=== PATIENT | female | born 1950 | race Caucasian/White ===

== ENCOUNTER → 2017-09-13 | Outpatient (CLI) | payer MEDICARE ==
--- NOTE | 2017-09-13 14:44 | RADIOLOGY REPORT (SQ) ---
EXAM DESCRIPTION: CT HEAD WITHOUT COMPLETED DATE/TIME: 09/13/2017 1:54 pm REASON FOR STUDY: HEADACHE (R51) R51 HEADACHE COMPARISON: None. TECHNIQUE: Axial images acquired through the brain without intravenous contrast. Images reviewed wi th bone, brain and subdural windows. Additional sagittal and coronal reconstructions were generated. Images stored on PACS. All CT scanners at this facility use dose modulation, iterative reconstruction, and/or weight based d osing when appropriate to reduce radiation dose to as low as reasonably achievable (ALARA). [facility]: Dose Right [facility]: CareDose [facility]: Dose Right [facility]: Teradose 4D [facility]: Angel Alerts RADIATION DOSE: CT Rad equipment meets quality standard of care and radiation dose reduction techniq ues were employed. CTDIvol: 48.6 mGy. DLP: 929 mGy-cm. mGy. LIMITATIONS: None. FINDINGS: VENTRICLES: Normal size and contour. CEREBRUM: No masses. No hemorrhage. No midline shift. No evidence for acute infarction. Normal gra y/white matter differentiation. No areas of low density in the white matter. CEREBELLUM: No masses. No hemorrhage. No alteration of density. No evidence for acute infarction. EXTRAAXIAL SPACES: No fluid collections. No masses. ORBITS AND GLOBE: No intra- or extraconal masses. Normal contour of globe without masses. CALVARIUM: No fracture. PARANASAL SINUSES: No fluid or mucosal thickening. SOFT TISSUES: No mass or hematoma. OTHER: No other significant finding. IMPRESSION: NORMAL BRAIN CT WITHOUT CONTRAST. EVIDENCE OF ACUTE STROKE: NO. COMMENT: Quality ID # [id number]: Final reports with documentation of one or more dose reduction techniques (e.g., Automated exposure control, adjustment of the mA and/or kV according to patient size, use of iterative reconstruction technique) TECHNICAL DOCUMENTATION: JOB ID: [id number] [employer]- All Rights Reserved Reading location - IP/workstation name: [email or web address]-[email or web address]
== END ==
LOC: RAD 13:32
PROVIDERS: ATTEND Family Medicine
DX: R51 Headache (principal)
CPT/HCPCS: 70450

== ENCOUNTER 2017-10-22 09:35 | Day surgery (SDC) | payer MEDICARE ==
[~2017-10-22 09:35] MED LIST: PROPOFOL INJ 200 MG/20 ML VIAL IV ONE
[2017-10-22 11:11] VITALS: BP 130/52
[2017-10-22] MEDS ORDERED: PROPOFOL INJ 200 MG/20 ML VIAL IV ONE (11:50)
--- NOTE | 2017-10-22 14:03 | Operative Report ---
Operative Report DATE OF SURGERY: 10/22/17 Operative Report: The risks, benefits and alternatives of the procedure including risks of bleeding, perforation requiring surgery are explained to the patient in detail and informed consent was obtained. Patient was taken back to the endoscopy suite and placed in a left, lateral decubital position. Timeout was called. Propofol medications administered. A rectal examination is done which did not reveal any masses, tenderness of fissures. An Olympus endoscope is inserted into the patient's rectum. The scope was then carefully advanced all the way to the cecum. The cecum was identified by the usual anatomical landmarks including the ileocecal valve as well as the appendiceal office. Photodocumentation is obtained. Prep is good. The scope was then sequentially pulled back via the various segments of the colon including the ascending colon , hepatic flexure, transverse colon, splenic flexure, descending colon and finally into the rectosigmoid portions of the colon. Retroflexion maneuver was performed. The risks benefits and alternatives of the procedure explained to the patient in detail and informed consent is obtained.A GIF Olympus video scope was inserted into the patient's mouth and hypopharynx, the esophagus is identified intubated and insufflated, the scope was then advanced through the esophagus stomach and duodenum, retroflexion maneuver is done, the esophagus stomach and first and second portions of the duodenum examined PREOPERATIVE DIAGNOSIS: Colorectal cancer screening. Nausea, gastroesophageal reflux disease POSTOPERATIVE DIAGNOSIS: Diverticulosis. Internal hemorrhoids. Colon polyp that is removed via snare polypectomy. Right-sided colon inflammation status post biopsy rule out lymphocytic colitis. Gastritis status post biopsy. Hiatal hernia OPERATION: Colonoscopy with snare polypectomy. Colonoscopy with biopsy. EGD with biopsy SURGEON: MOHSEN BARLOW ANESTHESIA: LMAC TISSUE REMOVED OR ALTERED: As noted above. COMPLICATIONS: None. ESTIMATED BLOOD LOSS: None. INTRAOPERATIVE FINDINGS: As noted above. PROCEDURE: Patient tolerated procedure well. No immediate postprocedure complications are noted. Patient discharged in good condition. Discharge date 10/22/2017. Discharge diet: Regular. Discharge activity: Regular. 2-3 week follow-up to discuss findings. 3-5 year surveillance colonoscopy. We will wait on the pathology. The patient is instructed to call the office or proceed to the emergency room should there be any further problems or questions.
== END 2017-10-22 11:14 | disposition home or self-care (01) ==
LOC: END 09:35
PROVIDERS: ATTEND Internal Medicine Gastroenterology
DX: Z12.11 Encounter for screening for malignant neoplasm of colon (principal); K57.30 Diverticulosis of large intestine without perforation or abscess without bleeding; K64.8 Other hemorrhoids; D12.6 Benign neoplasm of colon, unspecified; K52.9 Noninfective gastroenteritis and colitis, unspecified; K44.9 Diaphragmatic hernia without obstruction or gangrene; K29.50 Unspecified chronic gastritis without bleeding; E11.9 Type 2 diabetes mellitus without complications; E78.5 Hyperlipidemia, unspecified; I10 Essential (primary) hypertension; Z87.891 Personal history of nicotine dependence; E78.00 Pure hypercholesterolemia, unspecified; Z79.84 Long term (current) use of oral hypoglycemic drugs; Z79.899 Other long term (current) drug therapy; Z79.82 Long term (current) use of aspirin
CPT/HCPCS: 43239; 45380; 45388; 82962; 88342 ×2; 88305 ×2; J2704; 813

== ENCOUNTER → 2018-01-21 | Outpatient (CLI) | payer MEDICARE ==
--- NOTE | 2018-01-21 14:18 | WOMENS IMAGING REPORT ---
EXAM DESCRIPTION: BONE DENSITY HIP/SPINE COMPLETED DATE/TIME: 01/21/2018 1:48 pm REASON FOR STUDY: M81.0 AGE RELATED OSTEOPOROSIS Z12.31 ENCNTR SCREEN MAMMOGRAM FOR MALIGNANT NEOP LASM OF JOE M81.0 AGE-RELATED OSTEOPOROSIS W/O CURRENT PATHOLOGICAL FRAC COMPARISON: None. TECHNIQUE: Dual-Energy X-ray Absorptiometry (DEXA) of the AP Spine and Hip. LIMITATIONS: None. FINDINGS: LUMBAR SPINE: The bone mineral density (BMD) measured from L1-L4 in the AP projection correlates with a T-score of -1.2, which is osteopenia as defined by the World Health Organization. HIP: The bone mineral density (BMD) measured in the left hip correlates with a T-score of -2.7 in the femo ral neck, which is osteoporosis as defined by the World Health Organization. IMPRESSION: 1. LUMBAR SPINE: Osteopenia 2. HIP: Osteoporosis COMMENT: The World Health Organization defines low BMD as follows: T-score: Normal: Greater than -1.0 Osteopenia: Between -1.0 and -2.5 Osteoporosis: Less than -2.5 without fractures Established osteoporosis: Less than -2.5 with fractures In general, you may wish to consider: Diagnosis Treatment Follow-up DEXA Normal BMD Prevention 2-3 years Osteopenia Prevention/Therapy 1-2 years Osteoporosis Therapy Yearly TECHNICAL DOCUMENTATION: JOB ID: [id number] [employer]- All Rights Reserved Reading location - IP/workstation name: [email or web address]
--- NOTE | 2018-01-21 17:19 | WOMENS IMAGING REPORT ---
EXAM DESCRIPTION: 3D SCREENING MAMMO BILAT COMPLETED DATE/TIME: 01/21/2018 1:48 pm REASON FOR STUDY: ROUTINE SCREENING MAMMOGRAM Z12.31 Z12.31 ENCNTR SCREEN MAMMOGRAM FOR MALIGNANT N EOPLASM OF JEO M81.0 AGE-RELATED OSTEOPOROSIS W/O CURRENT PATHOLOGICAL FRAC COMPARISON: None. TECHNIQUE: Standard craniocaudal and mediolateral oblique views of each breast recorded using digita l acquisition and breast tomosynthesis. LIMITATIONS: None. FINDINGS: No masses, calcifications or architectural distortion. No areas of suspicion. Read with the assistance of CAD. .[facility] - R2 Cenova Version 1.3 .[facility] Imaging - R2 Cenova Version 1.3 .[facility] Imaging - R2 Cenova Version 2.4 .[facility] [place] - R2 Cenova Version 2.4 .[facility] - R2 Practice Administrator Version 9.2 IMPRESSION: NORMAL MAMMOGRAM. BIRADS 1. BREAST DENSITY: a. The breasts are almost entirely fatty. BIRAD: 1 NEGATIVE RECOMMENDATION: ROUTINE SCREENING Please continue yearly bilateral screening tomosynthesis in January 2019 COMMENT: The patient has been notified of the results by letter per [place] requirements. Additional no tification policies are in place for contacting patient with suspicious or incomplete findings. Quality ID #[id number]: The [employer] recommends an annual screening mammogram for women aged 40 years or over. This facility utilizes a reminder system to ensure that all patients receive reminder letters, and/or direct phone calls for appointments. This includes reminders for routine scr eening mammograms, diagnostic mammograms, or other Breast Imaging Interventions when appropriate. Th is patient will be placed in the appropriate reminder system. The [employer] (ACR) has developed recommendations for screening MRI of the breast s in certain patient populations, to be used in conjunction with mammography. Breast MRI surveillanc e may be appropriate for women with more than 20% lifetime risk of developing breast cancer as deter mined by genetic testing, significant family history of the disease, or history of mantle radiation f or Hodgkins Disease. ACR Practice Guidelines 2008. DBT Technology DBT is a type of tomographic mammography. With conventional mammography, overlapping breast tissue ma y make lesions difficult to detect, even with good compression. DBT uses an x-ray tube that rotates a round the breast, taking images at different angles. These images are then combined to create thin sl ices of the breast that the radiologist can view as a 3D reconstruction. The [facility] unit can perform full-field digital mammograms (2D imaging); or DBT (3D imaging); or both, in a combination mode that quickly performs both the mammogram and the tomosynthesis scan while the breast is still compressed. PQRS 6045F: Fluoroscopic imaging is not utilized for breast tomosynthesis. TECHNICAL DOCUMENTATION: FINDING NUMBER: (1) ASSESSMENT: (1) JOB ID: [id number] [employer]- All Rights Reserved Reading location - IP/workstation name: [email or web address]-[email or web address]
== END ==
LOC: WI 13:47
PROVIDERS: ATTEND Physician Assistant
DX: Z12.31 Encounter for screening mammogram for malignant neoplasm of breast (principal); M81.0 Age-related osteoporosis without current pathological fracture
CPT/HCPCS: 77063; 77067; 77080

== ENCOUNTER → 2018-07-15 | Outpatient (CLI) | payer MEDICARE ==
--- NOTE | 2018-07-15 12:46 | RADIOLOGY REPORT (SQ) ---
EXAM DESCRIPTION: SHOULDER LEFT 2 OR MORE VIEWS COMPLETED DATE/TIME: 07/15/2018 11:05 am REASON FOR STUDY: PAIN IN LEFT SHOULDER M25.512 PAIN IN LEFT SHOULDER COMPARISON: None. NUMBER OF VIEWS: Three views. TECHNIQUE: Internal rotation, external rotation, and Y view images acquired of the left shoulder. LIMITATIONS: None. FINDINGS: MINERALIZATION: Normal. BONES: No acute fracture or dislocation. No worrisome bone lesions. JOINTS: Mild acromioclavicular arthrosis. No dislocation. VISUALIZED LUNGS AND RIBS: No pneumothorax. No rib fracture. SOFT TISSUES: No radiopaque foreign body. OTHER: No other significant finding. IMPRESSION: 1. No acute osseous findings. 2. Mild acromioclavicular arthrosis. TECHNICAL DOCUMENTATION: JOB ID: [id number] [employer]- All Rights Reserved Reading location - IP/workstation name: [email or web address]
== END ==
LOC: OD 10:31
PROVIDERS: ATTEND Physician Assistant
DX: M25.512 Pain in left shoulder (principal); M19.012 Primary osteoarthritis, left shoulder

== ENCOUNTER → 2018-07-29 | Outpatient (CLI) | payer MEDICARE ==
[2018-07-29 12:17] LABS: ABSOLUTE LYMPHOCYTES (AUTO) 1.7 10^3/uL (0.5-4.7); ABSOLUTE MONOCYTES (AUTO) 0.6 10^3/uL (0.1-1.4); ABSOLUTE NEUT (AUTO) 4.5 10^3/uL (1.7-8.2); BASOPHILS % (AUTO) 0.5 % (0-2); EOSINOPHILS % (AUTO) 0.6 % (0-6); HEMATOCRIT 41.8 % (36.0-47.0); HEMOGLOBIN 14.3 g/dL (12.0-15.5); LYMPHOCYTES % (AUTO) 24.8 % (13-45); MEAN CORPUSCULAR HEMOGLOBIN 29.5 pg (27.0-33.4); MEAN CORPUSCULAR HGB CONC 34.3 g/dL (32.0-36.0); MEAN CORPUSCULAR VOLUME 86 fl (80-97); MONOCYTES % (AUTO) 9.1 % (3-13); PLATELET COUNT 233 10^3/uL (150-450); RED BLOOD COUNT 4.86 10^6/uL (3.72-5.28); RED CELL DISTRIBUTION WIDTH 13.4 % (11.5-14.0); TOTAL CELLS COUNTED % (AUTO) 100 %; WHITE BLOOD COUNT 6.9 10^3/uL (4.0-10.5)
[2018-07-29 12:39] LABS: ALANINE AMINOTRANSFERASE 31 U/L (9-52); ALBUMIN 4.6 g/dL (3.5-5.0); ALKALINE PHOSPHATASE 92 U/L (38-126); ANION GAP 11 (5-19); ASPARTATE AMINO TRANSFERASE 31 U/L (14-36); BILIRUBIN,DIRECT 0.2 mg/dL (0.0-0.4); BILIRUBIN,TOTAL 0.5 mg/dL (0.2-1.3); BLOOD UREA NITROGEN 17 mg/dL (7-20); CALCIUM 9.5 mg/dL (8.4-10.2); CARBON DIOXIDE 27 mmol/L (22-30); CHLORIDE 102 mmol/L (98-107); GLUCOSE 115 mg/dL (75-110); POTASSIUM 4.8 mmol/L (3.6-5.0); SODIUM 139.5 mmol/L (137-145); TOTAL PROTEIN 7.6 g/dL (6.3-8.2)
--- NOTE | 2018-07-29 12:48 | RADIOLOGY REPORT (SQ) ---
EXAM DESCRIPTION: CHEST 2 VIEWS COMPLETED DATE/TIME: 07/29/2018 10:59 am REASON FOR STUDY: COUGH COMPARISON: 10/26/2009 EXAM PARAMETERS: NUMBER OF VIEWS: two views TECHNIQUE: Digital Frontal and Lateral radiographic views of the chest acquired. RADIATION DOSE: NA LIMITATIONS: none FINDINGS: LUNGS AND PLEURA: No opacities, masses or pneumothorax. No pleural effusion. MEDIASTINUM AND HILAR STRUCTURES: No masses or contour abnormalities. HEART AND VASCULAR STRUCTURES: Heart normal size. No evidence for failure. BONES: No acute findings. HARDWARE: None in the chest. OTHER: No other significant finding. IMPRESSION: NO ACUTE RADIOGRAPHIC FINDING IN THE CHEST. TECHNICAL DOCUMENTATION: JOB ID: [id number] [employer]- All Rights Reserved Reading location - IP/workstation name: [email or web address]
== END ==
LOC: RAD 10:37
PROVIDERS: ATTEND Physician Assistant
DX: R05 Cough (principal)
CPT/HCPCS: 36415; 71046; 80053; 85025

== ENCOUNTER 2018-10-08 01:59 | Emergency (ER) | payer MEDICARE ==
--- NOTE | 2018-10-08 03:54 | ER Document Report ---
ED Extremity Problem, Lower - General Chief Complaint: Leg Injury Stated Complaint: LEG SWELLING Time Seen by Provider: 10/08/18 03:32 Primary Care Provider: LUCHO HERNANDEZ PA [NO LOCAL MD] - Follow up as needed TRAVEL OUTSIDE OF THE [place] IN LAST 30 DAYS: No - HPI Notes: Patient is a 68-year-old female with a history of hypertension and high cholesterol who presents to the emergency department after a fall last . Patient states that she was standing on a three-foot concrete slab when she stepped off landing on both feet. Patient denies falling. Patient states that she has continued to have left knee pain that radiates up into her left groin. Patient reports that she has taken ibuprofen as needed for pain but has not been helping. Patient states that the pain can occur in any position, and at times feels like a jolt radiating from her left knee up into her left groin. She states that she has been able to ambulate but that it hurts. Patient complains of swelling to her left upper leg. Patient denies back pain. Patient denies blood thinners. Patient denies head or neck pain. Denies loss of bowel or bladder. - Related Data Allergies/Adverse Reactions: No Known Allergies Allergy (Verified 10/22/17 09:39) Past Medical History - General Information source: Patient - Social History Smoking Status: Never Smoker Cigarette use (# per day): No Smoking Education Provided: No Frequency of alcohol use: None Drug Abuse: None Lives with: Friend Family History: Reviewed & Not Pertinent - Medical History Medical History: Negative - Past Medical History Cardiac Medical History: Reports: Hx Coronary Artery Disease, Hx Hypertension Denies: Hx Heart Attack Pulmonary Medical History: Denies: Hx Asthma, Hx Bronchitis, Hx COPD, Hx Pneumonia Neurological Medical History: Denies: Hx Cerebrovascular Accident, Hx Seizures Endocrine Medical History: Reports: None Renal/ Medical History: Reports: None Malignancy Medical History: Reports: None GI Medical History: Reports: None Musculoskeletal Medical History: Reports Hx Arthritis - HANDS/BACK Skin Medical History: Reports None Psychiatric Medical History: Reports: None Traumatic Medical History: Reports: None Infectious Medical History: Reports: None - Immunizations Hx Diphtheria, Pertussis, Tetanus Vaccination: Yes Review of Systems - Review of Systems Constitutional: No symptoms reported EENT: No symptoms reported Cardiovascular: No symptoms reported Respiratory: No symptoms reported Gastrointestinal: No symptoms reported Genitourinary: No symptoms reported Female Genitourinary: No symptoms reported Musculoskeletal: See HPI Skin: No symptoms reported Hematologic/Lymphatic: No symptoms reported Neurological/Psychological: No symptoms reported Physical Exam - Vital signs Vitals: Temp Pulse Resp BP Pulse Ox 97.5 F 86 22 H 114/75 95 10/08/18 02:05 10/08/18 02:05 10/08/18 02:05 10/08/18 02:05 10/08/18 02:05 Interpretation: Normal - General General appearance: Appears well, Alert - Respiratory Respiratory status: No respiratory distress Chest status: Nontender Breath sounds: Normal Chest palpation: Normal - Cardiovascular Rhythm: Regular Heart sounds: Normal auscultation, S1 appreciated, S2 appreciated - Abdominal Inspection: Normal Distension: No distension Bowel sounds: Normal Tenderness: Nontender Organomegaly: No organomegaly - Extremities General lower extremity: Other - Slight edema to left knee in comparision to right. No erythema. No ecchymosis. Patient able to perform active ROM to knee joint with minimal pain that radiates into the left thigh and left groin. Hematoma noted to left lateral upper leg in various stages of healing (pt. repo rts this is old and not from fall). Negative straight leg raise. No ecchymosis, edema or discoloration to the left groin or left inner thigh. - Skin Skin Temperature: Warm Skin Moisture: Dry Skin Color: Normal Course - Re-evaluation Re-evalutation: 10/08/18 03:59 After patient evaluation I will obtain imaging due to continue discomfort after the fall. I will medicate with Tylenol for pain. Patient did states she took ibuprofen about 4 hours ago. 10/08/18 04:55 Upon reevaluation patient is resting comfortably on stretcher. Patient states that the Tylenol did help with her discomfort. With further questioning patient states that her left knee pain that radiates into her left groin did not start initially after the fall. Patient states that the pain started yesterday. Patient denies any other injury or fall. Patient states that she is constantly up on her feet and moving around. Patient has not rested her lower extremity, states she has not used ice. Educated patient to rest her left leg over the next few days, elevate as tolerated to take Tylenol as needed for pain. Informed patient that she can continue her ibuprofen but she should avoid taking multiple doses of NSAID's as this can upset her stomach. - Vital Signs Vital signs: Temp Pulse Resp BP Pulse Ox 97.5 F 82 20 116/77 98 10/08/18 05:15 10/08/18 05:15 10/08/18 05:15 10/08/18 05:15 10/08/18 05:15 - Diagnostic Test Radiology reviewed: Reports reviewed Discharge - Discharge Clinical Impression: Leg pain, left Strain of knee and leg, left Qualifiers: Encounter type: initial encounter Qualified Code(s): S86.912A - Strain of unspecified muscle(s) and tendon(s) at lower leg level, left leg, initial encounter Condition: Stable Disposition: HOME, SELF-CARE Additional Instructions: Today you were seen in the emergency department for leg pain after a fall on . We did obtain x-rays of your left knee and left hip. The x-ray show ed no acute fracture or dislocation. Please rest your left leg over the next few days and elevate to help with the swelling. Continue to take Tylenol as needed for pain. You may take ibuprofen, but please take caution as this is an NSAID and can upset your stomach. Follow up with Dr. Champagne's office if you continue to have discomfort. Please seek immediate medical attention if you have any swelling in her calf, redness to your leg, discoloration of your leg, inability to ambulate, or any other worsening signs or symptoms. Leg Pain, Nonspecific We did not find an obvious cause for your leg pain. There's no sign of blood clot, infection, or other serious disease. Possible causes of vague leg pain include muscle or joint inflammation, disc disease in the lower back, pressure on the nerves in the back, or reduced blood flow through the arteries of the leg. Rest the leg. Pain can be eased with an antiinflammatory pain medicine such as ibuprofen. If the pain involves a small area, a heating pad might help. Call the doctor or return if the leg becomes swollen, weak, discolored, or increasingly painful, or if you develop any other significant change in your health. Referrals: LUCHO HERNANDEZ PA [NO LOCAL MD] - Follow up as needed
[2018-10-08] MEDS ORDERED: ACETAMINOPHEN 325 MG TABLET PO ONE (03:55)
--- NOTE | 2018-10-08 04:35 | RADIOLOGY REPORT (SQ) ---
EXAM DESCRIPTION: XR HIP 2 OR MORE VIEWS COMPLETED DATE/TME: 10/08/2018 03:50 CLINICAL HISTORY: 68 years, Female, fall COMPARISON: None. NUMBER OF VIEWS: Two TECHNIQUE: Two views of the left hip LIMITATIONS: None. FINDINGS: There is no acute fracture or dislocation. The hip and sacroiliac joint appear intact. No large soft tissue swelling. IMPRESSION: No acute fracture or dislocation. copyright 2010 [employer]- All Rights Reserved
--- NOTE | 2018-10-08 04:36 | RADIOLOGY REPORT (SQ) ---
CLINICAL HISTORY: fall COMPARISON: None. TECHNIQUE: XR KNEE 4 OR MORE VIEWS 10/08/2018 3:50 AM CDT FINDINGS: There is no fracture. Joint spaces are preserved. Soft tissues are unremarkable. IMPRESSION: No acute osseous findings.
[2018-10-08 05:17] VITALS: BP 116/77
== END 2018-10-08 05:16 | disposition home or self-care (01) ==
LOC: ER 01:59
DX: S86.912A Strain of unspecified muscle(s) and tendon(s) at lower leg level, left leg, initial encounter (principal); M79.605 Pain in left leg; W17.89XA Other fall from one level to another, initial encounter; I25.10 Atherosclerotic heart disease of native coronary artery without angina pectoris; I10 Essential (primary) hypertension
CPT/HCPCS: 99283; 73502; 73564; A9270

== ENCOUNTER → 2018-10-23 | Outpatient (CLI) | payer MEDICARE ==
--- NOTE | 2018-10-23 10:37 | RADIOLOGY REPORT (SQ) ---
EXAM DESCRIPTION: L SPINE WHOLE COMPLETED DATE/TIME: 10/23/2018 9:42 am REASON FOR STUDY: LUMBAGO WITH SCIATICA, LEFT SIDE (M54.42) M54.42 LUMBAGO WITH SCIATICA, LEFT SIDE COMPARISON: None. NUMBER OF VIEWS: Five views including obliques. TECHNIQUE: AP, lateral, oblique, and sacral radiographic images acquired of the lumbar spine. LIMITATIONS: None. FINDINGS: MINERALIZATION: Normal. SEGMENTATION: Normal. No transitional anatomy. ALIGNMENT: Normal. VERTEBRAE: There is very slight anterior wedging of L3. No more than 5% loss of height. This may re present normal variant. Mild compression deformity cannot be excluded. Age is indeterminate. DISCS: Mild disc space narrowing at L1-L2, L2-L3 and L3-L4. Mild disc space narrowing at L5-S1. POSTERIOR ELEMENTS: Pedicles and facets are intact. No pars defect or posterior arch defects. HARDWARE: None in the spine. PARASPINAL SOFT TISSUES: Normal. PELVIS: Intact as visualized. No fractures or worrisome bone lesions. SI joints intact. OTHER: No other significant finding. IMPRESSION: Mild multilevel spondylosis. Mild wedge deformity at L3. Age is indeterminate. TECHNICAL DOCUMENTATION: JOB ID: [id number] [employer]- All Rights Reserved Reading location - IP/workstation name: [email or web address]
== END ==
LOC: RAD 09:13
PROVIDERS: ATTEND Physician Assistant
DX: M54.42 Lumbago with sciatica, left side (principal)
CPT/HCPCS: 72110

== ENCOUNTER → 2018-11-07 | Outpatient (CLI) | payer MEDICARE ==
--- NOTE | 2018-11-07 12:05 | RADIOLOGY REPORT (SQ) ---
EXAM DESCRIPTION: MRI LT LOWER JOINT WITHOUT COMPLETED DATE/TIME: 11/07/2018 11:24 am REASON FOR STUDY: PAIN IN LEFT HIP (M25.552) M25.552 PAIN IN LEFT HIP COMPARISON: None. TECHNIQUE: Lefth[employer] images acquired and stored on PACS. Multiplanar images to include fat sensitive s equences as T1, fluid sensitive sequences as T2/STIR and gradient echo sequences. Large FOV fat and f luid sensitive sequences include pelvis and opposite hip. LIMITATIONS: None. FINDINGS: BONE CORTEX AND MARROW: No generalized marrow replacement. No occult fracture. No worriso me bone lesions. TARGETED HIP: FEMORAL HEAD: No evidence of AVN. No evidence of impingement. Mild osteoarthritic changes. ACETABULUM: No acetabular dysplasia. No subchondral cysts. LABRUM: Degenerative changes. TROCHANTER: No trochanteric bursal effusion. No edema/fluid at the insertions of the gluteus medius and gluteus minimus. OPPOSITE HIP: Limited evaluation. No worrisome bone lesions. No significant effusion. PELVIS, LOWER LUMBAR SPINE, SACROILIAC JOINTS: PELVIS : Mild subchondral edema right inferior SI joint. L SPINE: Spondylosis. MUSCLES AND SOFT TISSUES: Adductors and piriformis normal. Abductors and greater trochanteric bursa n ormal without edema or fluid. Iliopsoas bursa without fluid. Hamstring attachments without edema or t ear. PELVIC SOFT TISSUES: No masses or adenopathy. SCIATIC NERVE: Identified, without masses or abnormal signal. OTHER: No other significant finding. IMPRESSION: Mild degenerative changes. No acute findings in the left hip. TECHNICAL DOCUMENTATION: JOB ID: [id number] [employer]- All Rights Reserved Reading location - IP/workstation name: [email or web address]
== END ==
LOC: RAD 10:39
PROVIDERS: ATTEND Physician Assistant
DX: M25.552 Pain in left hip (principal)

== ENCOUNTER → 2018-12-18 | Outpatient (CLI) | payer MEDICARE ==
--- NOTE | 2018-12-18 14:00 | RADIOLOGY REPORT (SQ) ---
EXAM DESCRIPTION: MRI LUMBAR SPINE WITHOUT COMPLETED DATE/TIME: 12/18/2018 1:45 pm REASON FOR STUDY: S32.030A WEDGE COMPRESSION FRACTURE OF THIRD LUMBAR VERTEBRA, INIT S32.030A WEDGE COMPRESSION FRACTURE OF THIRD LUMBAR VERTEBRA COMPARISON: Lumbar spine plain films 10/23/2018 TECHNIQUE: Sagittal and Axial imaging includes T1, T2, STIR and gradient echo sequences. Coronal T2/ HASTE imaging. LIMITATIONS: None. FINDINGS: VISUALIZED UPPER ABDOMEN: Limited evaluation. No acute or suspicious findings suggested. SEGMENTATION: No transitional anatomy. The lowest well-developed disc space is labeled L5-S1. ALIGNMENT: Minimal anterolisthesis of L5 over S1 VERTEBRAE: Intact. No lumbar osteoporotic compression deformity. BONE MARROW: Normal. No marrow replacement or reactive changes. DISC SIGNAL: Diffuse decreased T2 weighted intervertebral disc signal. POSTERIOR ELEMENTS: Generally intact. No pars defect evident. HARDWARE: None in the spine. CORD AND CONUS: Normal in size and signal intensity. Conus at the L1-2 level. SOFT TISSUES: No aortic aneurysm seen. No bulky retroperitoneal adenopathy or mass. No paraspinal mas s or fluid. T10-11: At the upper edge of the field of view. Borderline central canal narrowing and mild bilater al foraminal stenosis results from broad diffuse disc bulge and bulky bilateral facet hypertrophy. T11-12: No central or foraminal stenosis. Mild bilateral facet hypertrophy. T12-L1: No central or foraminal stenosis. Mild bilateral facet hypertrophy. L1-L2: No central or foraminal stenosis. Mild bilateral facet hypertrophy. L2-L3: Broad diffuse posterior disc bulge, moderate bilateral facet and ligament hypertrophy cause pasquale rderline central canal narrowing. No significant foraminal narrowing. L3-L4: Broad diffuse posterior disc bulge bony spurring left greater than right moderate bilateral fa cet hypertrophy. Borderline central canal narrowing. Mild right, moderate left foraminal narrowing without definite exiting L3 nerve root impingement. L4-L5: Broad diffuse posterior disc bulging and moderate bilateral facet and ligament hypertrophy cau ses mild central canal stenosis. This best shown on axial T2 image 23 there is moderate bilateral fo raminal narrowing without exit L4 nerve root. L5-S1: Bulky bilateral facet arthropathy is present. No central stenosis. Mild to moderate bilatera l foraminal narrowing right greater than left. SACRUM: Visualized upper sacrum intact. OTHER: No other significant findings. IMPRESSION: Mild diffuse degenerative disc and facet changes. No lumbar compression deformity. TECHNICAL DOCUMENTATION: JOB ID: [id number] [employer]- All Rights Reserved Reading location - IP/workstation name: [email or web address]
== END ==
LOC: RAD 12:53
PROVIDERS: ATTEND Pain Medicine Interventional Pain Medicine
DX: S32.030A Wedge compression fracture of third lumbar vertebra, initial encounter for closed fracture (principal); M51.36 Other intervertebral disc degeneration, lumbar region; X58.XXXA Exposure to other specified factors, initial encounter
CPT/HCPCS: 72148

== ENCOUNTER → 2019-03-11 | Outpatient (CLI) | payer MEDICARE ==
--- NOTE | 2019-03-11 15:38 | RADIOLOGY REPORT (SQ) ---
EXAM DESCRIPTION: CERV SP 4 OR 5 VIEWS COMPLETED DATE/TIME: 03/11/2019 1:11 pm REASON FOR STUDY: M79.602 PAIN IN LEFT ARM M79.602 PAIN IN LEFT ARM COMPARISON: None. NUMBER OF VIEWS: Five views including obliques. TECHNIQUE: AP, lateral, obliques and odontoid radiographic images acquired of the cervical spine. LIMITATIONS: None. FINDINGS: MINERALIZATION: Normal. ALIGNMENT: Normal. VERTEBRAE: Maintained height. No fracture or worrisome bone lesion. DISCS: Multilevel disc space narrowing with osteophytes. POSTERIOR ELEMENTS: Pedicles and facets are intact. No posterior arch defects. Facet arthropathy is present. FORAMINA: No significant foraminal stenosis. HARDWARE: None in the spine. PARASPINAL SOFT TISSUES: Normal. OTHER: No other significant finding. IMPRESSION: SPONDYLOSIS WITHOUT BONE LESION OR FRACTURE. TECHNICAL DOCUMENTATION: JOB ID: [id number] [employer]- All Rights Reserved Reading location - IP/workstation name: [email or web address]
== END ==
LOC: RAD 12:43
PROVIDERS: ATTEND Physician Assistant
DX: M79.602 Pain in left arm (principal); M47.9 Spondylosis, unspecified
CPT/HCPCS: 72050

== ENCOUNTER 2019-03-22 10:49 | Observation (INO) | payer MEDICARE ==
--- NOTE | 2019-03-22 11:40 | ER Document Report ---
ED Medical Screen (RME) - General Chief Complaint: High Blood Pressure Stated Complaint: BLOOD PRESSURE ISSUES Time Seen by Provider: 03/22/19 11:31 Primary Care Provider: CECE HUTCHINSON MD [Primary Care Provider] - Follow up as needed Mode of Arrival: Medic Information source: Patient Notes: 68-year-old female presents to ED for elevated blood pressure. She states she was at the [employer] and her head was buzzing and hurt so she checked her blood pressure and it was 211/117. She states the [employer] called EMS and they still got the blood pressure over 200. She was brought to the emergency room for her high blood pressure. States is been running high for long time because she is been having headaches and throwing up she just had not checked it. Discussed with the patient the need to follow-up with her doctor frequently when she has a history of high blood pressure and is having symptoms. She states she to the doctor and Sunday, and he doubled her medicine and added a water pill recently she was told to come to the emergency room if it got elevated over the weekend. States they are scheduling MRIs for her carotids next week and she has an appointment with the doctor on Sunday. TRAVEL OUTSIDE OF THE [place] IN LAST 30 DAYS: No - Related Data Allergies/Adverse Reactions: No Known Allergies Allergy (Verified 10/22/17 09:39) Past Medical History - Past Medical History Cardiac Medical History: Reports: Hx Coronary Artery Disease, Hx Hypertension Denies: Hx Heart Attack Pulmonary Medical History: Denies: Hx Asthma, Hx Bronchitis, Hx COPD, Hx Pneumonia Neurological Medical History: Denies: Hx Cerebrovascular Accident, Hx Seizures Renal/ Medical History: Denies: Hx Peritoneal Dialysis Musculoskeltal Medical History: Reports Hx Arthritis - HANDS/BACK Past Surgical History: Reports: Hx Hysterectomy - Immunizations Hx Diphtheria, Pertussis, Tetanus Vaccination: Yes Doctor's Discharge - Discharge Referrals: CECE HUTCHINSON MD [Primary Care Provider] - Follow up as needed
[2019-03-22 11:55] LABS: ABSOLUTE LYMPHOCYTES (AUTO) 0.8 10^3/uL (0.5-4.7); ABSOLUTE MONOCYTES (AUTO) 0.1 10^3/uL (0.1-1.4); ABSOLUTE NEUT (AUTO) 10.2 10^3/uL (1.7-8.2); HEMOGLOBIN 13.6 g/dL (12.0-15.5); LYMPHOCYTES % (AUTO) 7.1 % (13-45); MEAN CORPUSCULAR HEMOGLOBIN 28.1 pg (27.0-33.4); MEAN CORPUSCULAR HGB CONC 33.1 g/dL (32.0-36.0); MEAN CORPUSCULAR VOLUME 85 fl (80-97); PLATELET COUNT 319 10^3/uL (150-450); RED BLOOD COUNT 4.82 10^6/uL (3.72-5.28); RED CELL DISTRIBUTION WIDTH 14.5 % (11.5-14.0); SEGMENTED NEUTROPHILS % (AUTO) 91.9 % (42-78); TOTAL CELLS COUNTED % (AUTO) 100 %; WHITE BLOOD COUNT 11.1 10^3/uL (4.0-10.5)
[2019-03-22 11:58] LABS: INTERNATIONAL RATION (INR) 1.03; PROTHROMBIN TIME 13.5 SEC (11.4-15.4)
[2019-03-22 11:59] LABS: PARTIAL THROMBOPLASTIN TIME 27.6 SEC (23.5-35.8)
[2019-03-22 12:00] LABS: ALBUMIN 4.2 g/dL (3.5-5.0); ALKALINE PHOSPHATASE 85 U/L (38-126); ANION GAP 10 (5-19); ASPARTATE AMINO TRANSFERASE 22 U/L (14-36); BILIRUBIN,DIRECT 0.1 mg/dL (0.0-0.4); BILIRUBIN,TOTAL 0.5 mg/dL (0.2-1.3); BLOOD UREA NITROGEN 12 mg/dL (7-20); CALCIUM 9.9 mg/dL (8.4-10.2); CARBON DIOXIDE 23 mmol/L (22-30); CHLORIDE 106 mmol/L (98-107); CREATINE KINASE 79 U/L (30-135); GLUCOSE 130 mg/dL (75-110); POTASSIUM 4.2 mmol/L (3.6-5.0)
[2019-03-22 12:12] LABS: CREATINE KINASE MB 1.26 ng/mL (<4.55); NT PRO BNP 1610 pg/mL (5-900)
[2019-03-22 12:14] LABS: TROPONIN I < 0.012 ng/mL
--- NOTE | 2019-03-22 12:53 | ER Document Report ---
ED General - General Chief Complaint: High Blood Pressure Stated Complaint: BLOOD PRESSURE ISSUES Time Seen by Provider: 03/22/19 11:31 Primary Care Provider: CECE HUTCHINSON MD [Primary Care Provider] - Follow up as needed Mode of Arrival: Medic Notes: HPI: Vision is a 68-year-old female with past medical history as recorded including some recent uncontrolled blood pressure. Patient did see her primary care physician Dr. Champagne 2 days ago and had 1 of her pressure medications doubled. She does not remember which medication it was. She also got placed on a water pill yesterday by the same physician. Patient was driving to the [place] when she started to feel some mild pressure behind her head. No blurry vision. No weakness or numbness. No headache. Patient did call EMS. They did provide clonidine 0.2 mg after a recorded elevated blood pressure. Patient's blood pressure is now much improved here in the emergency department and she denies any headache. ROS: See HPI All other review of systems reviewed and otherwise negative Reviewed vital signs and nursing note as charted by RN. PHYSICAL EXAM: CONSTITUTIONAL: Alert and oriented and responds appropriately to questions. Well-appearing; well-nourished HEAD: Normocephalic; atraumatic EYES: PERRL; full extraocular range of motion ENT: Normal nose; no rhinorrhea; moist mucous membranes; pharynx without lesions noted NECK: Supple without meningismus; non-tender; no cervical lymphadenopathy, no masses CARD: Regular rate and rhythm; no murmurs; symmetric distal pulses RESP: Normal chest excursion without splinting or tachypnea; breath sounds clear and equal bilaterally; no wheezes, no rhonchi, no rales ABD/GI: Normal bowel sounds; non-distended; soft, non-tender; no palpable organomegaly or masses BACK: The back appears normal and is non-tender to palpation EXT: Normal ROM in all joints; non-tender to palpation; no edema SKIN: No acute lesions noted NEURO: CN 2-12 intact; 5/5 bilateral upper and lower extremity strength with sensation intact to light touch PSYCH: The patient's mood and manner are appropriate. Grooming and personal hygiene are appropriate. TRAVEL OUTSIDE OF THE [place] IN LAST 30 DAYS: No - Related Data Allergies/Adverse Reactions: No Known Allergies Allergy (Verified 10/22/17 09:39) Past Medical History - General Information source: Patient - Social History Smoking Status: Unknown if Ever Smoked Family History: Reviewed & Not Pertinent Patient has suicidal ideation: No Patient has homicidal ideation: No - Past Medical History Cardiac Medical History: Reports: Hx Coronary Artery Disease, Hx Hypertension Denies: Hx Heart Attack Pulmonary Medical History: Denies: Hx Asthma, Hx Bronchitis, Hx COPD, Hx Pneumonia Neurological Medical History: Denies: Hx Cerebrovascular Accident, Hx Seizures Renal/ Medical History: Denies: Hx Peritoneal Dialysis Musculoskeletal Medical History: Reports Hx Arthritis - HANDS/BACK Past Surgical History: Reports: Hx Hysterectomy - Immunizations Hx Diphtheria, Pertussis, Tetanus Vaccination: Yes Physical Exam - Vital signs Vitals: Temp Resp BP Pulse Ox 98.2 F 18 180/106 H 97 03/22/19 11:00 03/22/19 11:00 03/22/19 11:00 03/22/19 11:00 Course - Re-evaluation Re-evalutation: 03/22/19 12:47 Given the history and physical exam with the blood pressure now as recorded, with the patient denying any pain, I do believe subarachnoid hemorrhage and temporal arteritis to be extremely unlikely. Patient had no blurry vision and currently has no pain leading me to believe acute angle-closure glaucoma to be unlikely. EKG shows heart of 89, normal sinus rhythm, left bundle branch block, old EKG has been requested 03/22/19 13:45 Imaging and labs as recorded. Patient's headache is still improved. Blood pressure still stable. I called and spoke to the primary care physician Dr. Champagne and we will admit the patient for observation overnight with blood pressure monitoring. - Vital Signs Vital signs: Temp Pulse Resp BP Pulse Ox 98.2 F 16 151/119 H 97 03/22/19 11:00 03/22/19 12:31 03/22/19 12:31 03/22/19 12:31 - Laboratory Result Diagrams: 03/22/19 11:30 03/22/19 11:30 Laboratory results interpreted by me: 03/22/19 03/22/19 03/22/19 11:30 11:30 11:30 WBC 11.1 H RDW 14.5 H Lymph % (Auto) 7.1 L [place] % (Auto) 1.0 L Absolute Neuts (auto) 10.2 H Seg Neutrophils % 91.9 H Glucose 130 H NT-Pro-B Natriuret Pep 1610 H TSH 03/22/19 11:30 WBC RDW Lymph % (Auto) [place] % (Auto) Absolute Neuts (auto) Seg Neutrophils % Glucose NT-Pro-B Natriuret Pep TSH 0.36 L Discharge - Discharge Clinical Impression: Hypertensive urgency, Elevated brain natriuretic peptide (BNP) level Headache Qualifiers: Headache type: unspecified Headache chronicity pattern: unspecified pattern Intractability: not intractable Qualified Code(s): R51 - Headache Condition: Good Disposition: ADMITTED OBSERVATION Admitting Provider: [facility] Unit Admitted: Telemetry Referrals: CECE HUTCHINSON MD [Primary Care Provider] - Follow up as needed
--- NOTE | 2019-03-22 13:25 | RADIOLOGY REPORT (SQ) ---
EXAM DESCRIPTION: CT HEAD WITHOUT COMPLETED DATE/TIME: 03/22/2019 1:14 pm REASON FOR STUDY: 4; headache COMPARISON: 09/13/2017. TECHNIQUE: Axial images acquired through the brain without intravenous contrast. Images reviewed wi th bone, brain and subdural windows. Additional sagittal and coronal reconstructions were generated. Images stored on PACS. All CT scanners at this facility use dose modulation, iterative reconstruction, and/or weight based d osing when appropriate to reduce radiation dose to as low as reasonably achievable (ALARA). [facility]: Dose Right [facility]: CareDose [facility]: Dose Right [facility]: Teradose 4D [facility]: Smart Solar [employer] RADIATION DOSE: CT Rad equipment meets quality standard of care and radiation dose reduction techniq ues were employed. CTDIvol: 53.2 mGy. DLP: 964 mGy-cm. mGy. LIMITATIONS: None. FINDINGS: VENTRICLES: Normal size and contour. CEREBRUM: No masses. No hemorrhage. No midline shift. No evidence for acute infarction. Normal gra y/white matter differentiation. No areas of low density in the white matter. CEREBELLUM: No masses. No hemorrhage. No alteration of density. No evidence for acute infarction. EXTRAAXIAL SPACES: No fluid collections. No masses. ORBITS AND GLOBE: No intra- or extraconal masses. Normal contour of globe without masses. CALVARIUM: No fracture. PARANASAL SINUSES: No fluid or mucosal thickening. SOFT TISSUES: No mass or hematoma. OTHER: No other significant finding. IMPRESSION: NORMAL BRAIN CT WITHOUT CONTRAST. EVIDENCE OF ACUTE STROKE: NO. COMMENT: Quality ID # [id number]: Final reports with documentation of one or more dose reduction techniques (e.g., Automated exposure control, adjustment of the mA and/or kV according to patient size, use of iterative reconstruction technique) TECHNICAL DOCUMENTATION: JOB ID: [id number] [employer]- All Rights Reserved Reading location - IP/workstation name: [email or web address]
[2019-03-22] MEDS ORDERED: ACETAMINOPHEN 325 MG TABLET PO PRN (15:01)
[2019-03-22] MEDS ORDERED: LORAZEPAM INJ 2 MG/1 ML VIAL IV ONE (16:12)
[2019-03-22 16:38] LABS: CREATINE KINASE MB 0.99 ng/mL (<4.55)
[2019-03-22 16:40] LABS: TROPONIN I < 0.012 ng/mL
[2019-03-22] MEDS ORDERED: CYCLOBENZAPRINE HCL 10 MG TABLET PO PRN (16:43)
[2019-03-22] MEDS ORDERED: DEXTROSE 50%-WATER 25 GM/50 ML DISP.SYRIN IV PRN ×2 (16:44)
[2019-03-22] MEDS ORDERED: GLUCAGON,HUMAN RECOMB 1 MG INJ IM PRN (16:44)
[2019-03-22] MEDS ORDERED: DEXTROSE 40% GEL 15 GM TUBE PO PRN ×2 (16:44)
--- NOTE | 2019-03-22 17:02 | PDOC H&P ---
History of Present Illness Admission Date/PCP: 03/22/19 15:01 CECE HUTCHINSON MD Patient complains of: Elevated blood pressures and headache History of Present Illness: ADRI SHAH is a 68 year old female This is a 68-year-old female with a history of the hypertension hyperlipidemia coronary artery disease came to the office last week with blood pressure issues increase the beta-akbar still blood pressure is elevated him yesterday added the hydrochlorothiazide. Patient went to the [facility] today and patient's noticed the headaches not feeling well check of blood pressure was 211 systolic called EMS. Patient is receiving the 0.2 mg clonidine when patients came to the emergency department for systolic blood pressure was 140 and patient's denied any headache no other symptoms Patient's initial CT head was all negatives Patient have a history of coronary artery disease and I believe left bundle branch block and the previously seen in the [facility] had a stress test and echocardiogram done in the May 2018 per patient and all stable Patient is currently denied any chest pain no short of breath Past Medical History Cardiac Medical History: Reports: Coronary Artery Disease, Hypertension Denies: Myocardial Infarction Pulmonary Medical History: Denies: Asthma, Bronchitis, Chronic Obstructive Pulmonary Disease (COPD), Pneumonia Neurological Medical History: Denies: Seizures Endocrine Medical History: Reports: Diabetes Mellitus Type 2 Musculoskeltal Medical History: Reports: Arthritis - HANDS/BACK Psychiatric Medical History: Reports: General Anxiety Disorder Hematology: Denies: Anemia Past Surgical History Past Surgical History: Reports: Hysterectomy Social History Information Source: Patient Smoking Status: Unknown if Ever Smoked Electronic Cigarette use?: No Frequency of Alcohol Use: None Hx Recreational Drug Use: No Hx Prescription Drug Abuse: No Family History Family History: Reviewed & Not Pertinent Parental Family History Reviewed: Yes Children Family History Reviewed: Yes Sibling(s) Family History Reviewed.: Yes Medication/Allergy Home Medications: Aspirin [Ecotrin 81 mg EC Tablet] 324 mg PO DAILY 03/22/19 Atorvastatin Calcium [Lipitor 40 mg Tablet] 40 mg PO DAILY 03/22/19 Cyclobenzaprine HCl [Flexeril 10 mg Tablet] 10 mg PO HSP PRN 03/22/19 Hydrochlorothiazide [Hydrodiuril 25 mg Tablet] 25 mg PO DAILY 03/22/19 Lisinopril [Prinivil 40 mg Tablet] 40 mg PO DAILY 03/22/19 Metformin HCl [Metformin HCl ER] 500 mg PO DAILY 03/22/19 Metoprolol Succinate [Toprol Xl 25 mg Tab.sr] 25 mg PO DAILY 03/22/19 Multivit-Min/Iron/Folic/Tfe204 [Hair, Skin and Nails Caplet] 1 tab PO DAILY 03/22/19 Omeprazole 40 mg PO DAILY 03/22/19 Allergies/Adverse Reactions: No Known Allergies Allergy (Verified 10/22/17 09:39) Review of Systems Constitutional: ABSENT: chills, fever(s), headache(s), weight gain, weight loss Eyes: ABSENT: visual disturbances Ears: ABSENT: hearing changes Nose, Mouth, and Throat: PRESENT: headache(s) Cardiovascular: ABSENT: chest pain, dyspnea on exertion, edema, orthropnea, palpitations Respiratory: ABSENT: cough, hemoptysis Gastrointestinal: ABSENT: abdominal pain, constipation, diarrhea, hematemesis, hematochezia, nausea, vomiting Genitourinary: ABSENT: dysuria, hematuria Musculoskeletal: ABSENT: joint swelling Integumentary: ABSENT: rash, wounds Neurological: ABSENT: abnormal gait, abnormal speech, confusion, dizziness, focal weakness, syncope Psychiatric: ABSENT: anxiety, depression, homidical ideation, suicidal ideation Endocrine: ABSENT: cold intolerance, heat intolerance, menstrual abnormalities, polydipsia, polyuria Hematologic/Lymphatic: ABSENT: easy bleeding, easy bruising, lymphadenopathy Physical Exam Vital Signs: Temp Pulse Resp BP Pulse Ox 98.6 F 22 H 117/77 94 03/22/19 14:31 03/22/19 15:31 03/22/19 15:31 03/22/19 15:31 Intake & Output 03/21/19 03/22/19 03/23/19 06:59 06:59 06:59 Weight 73.482 kg General appearance: PRESENT: no acute distress, well-developed, well-nourished Head exam: PRESENT: atraumatic, normocephalic Eye exam: PRESENT: conjunctiva pink, EOMI, PERRLA. ABSENT: scleral icterus Ear exam: PRESENT: normal external ear exam Mouth exam: PRESENT: moist, tongue midline Neck exam: PRESENT: full ROM. ABSENT: carotid bruit, JVD, lymphadenopathy, thyromegaly Respiratory exam: PRESENT: clear to auscultation maude Cardiovascular exam: PRESENT: RRR. ABSENT: diastolic murmur, rubs, systolic murmur Pulses: PRESENT: normal dorsalis pedis pul, +2 pedal pulses bilateral Vascular exam: PRESENT: normal capillary refill GI/Abdominal exam: PRESENT: normal bowel sounds, soft. ABSENT: distended, gua rding, mass, organolmegaly, rebound, tenderness Rectal exam: PRESENT: deferred Neurological exam: PRESENT: alert, awake, oriented to person, oriented to place, oriented to time, oriented to situation, CN II-XII grossly intact. ABSENT: motor sensory deficit Psychiatric exam: PRESENT: appropriate affect, normal mood. ABSENT: homicidal ideation, suicidal ideation Skin exam: PRESENT: dry, intact, warm. ABSENT: cyanosis, rash Results Laboratory Results: 03/22/19 11:30 03/22/19 11:30 03/22/19 03/22/19 03/22/19 11:30 11:30 11:30 WBC 11.1 H RBC 4.82 Hgb 13.6 Hct 41.0 MCV 85 MCH 28.1 MCHC 33.1 RDW 14.5 H Plt Count 319 Seg Neutrophils % 91.9 H Sodium 138.6 Potassium 4.2 Chloride 106 Carbon Dioxide 23 Anion Gap 10 BUN 12 Creatinine 0.71 Est GFR ( Amer) > 60 Glucose 130 H Calcium 9.9 Magnesium 1.7 Total Bilirubin 0.5 AST 22 Alkaline Phosphatase 85 Total Protein 7.0 Albumin 4.2 TSH 0.36 L 03/22/19 03/22/19 03/22/19 11:30 11:30 15:45 Creatine Kinase 79 67 CK-MB (CK-2) 1.26 Troponin I < 0.012 NT-Pro-B Natriuret Pep 1610 H Impressions: Head CT 03/22/19 12:32 IMPRESSION: NORMAL BRAIN CT WITHOUT CONTRAST. EVIDENCE OF ACUTE STROKE: NO. Assessment & Plan - Diagnosis (1) Hypertensive urgency Is this a current diagnosis for this admission?: Yes Plan: Patient is currently taking the lisinopril 40 mg p.o. daily Also taking the metoprolol And added hydrochlorothiazide yesterday Patient to obviously responded very well with the clonidine Patient unable to take any Norvasc the mix of upset stomach Will consider continue the lisinopril beta-akbar Added a nighttime dose of clonidine Continues to monitor the next 24 to 48 hours in the hospital to control the blood pressures slowly bring it down Will get the MRI of the head We will also get the renal artery Doppler ultrasounds (2) Coronary artery disease Qualifiers: Coronary Disease-Associated Artery/Lesion type: [place] artery Associated angina: without angina Is this a current diagnosis for this admission?: Yes Plan: Patient have a left bundle branch block not sure was in [place] or previously Will get the serial cardiac enzyme Consult cardiology (3) Hyperlipidemia Qualifiers: Hyperlipidemia type: unspecified Qualified Code(s): E78.5 - Hyperlipidemia, unspecified Is this a current diagnosis for this admission?: Yes (4) Elevated brain natriuretic peptide (BNP) level Is this a current diagnosis for this admission?: Yes Plan: Consult cardiology rule out underlying heart failure most likely uncontrolled hypertension so related (5) Headache Qualifiers: Headache type: unspecified Headache chronicity pattern: unspecified pattern Intractability: not intractable Qualified Code(s): R51 - Headache Is this a current diagnosis for this admission?: Yes Plan: We will get the MRI and MRA of the head (6) Diabetes type 2, controlled Qualifiers: Diabetes mellitus 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 terminal gauger insulin use: without shelter use Is this a current diagnosis for this admission?: Yes Plan: Continues to metformin and sliding scale - Time Time Spent: 50 to 70 Minutes Medications reviewed and adjusted accordingly: Yes Anticipated discharge: Home Within: Other - Inpatient Certification Based on my medical assessment, after consideration of the patient's comorbi dities, presenting symptoms, or acuity I expect that the services needed warrant INPATIENT care.: Yes I certify that my determination is in accordance with my understanding of Medicare's requirements for reasonable and necessary INPATIENT services [42 CFR 412.3e].: Yes Medical Necessity: Significant Comorbidiites Make Outpatient Treatment Too Risky, Need Close Monitoring Due to Risk of Patient Decompensation Post Hospital Care: D/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
--- NOTE | 2019-03-22 18:23 | RADIOLOGY REPORT (SQ) ---
EXAM DESCRIPTION: MRI HEAD WITHOUT COMPLETED DATE/TIME: 03/22/2019 6:13 pm REASON FOR STUDY: syncopal COMPARISON: CT dated 03/22/2019. TECHNIQUE: Multiplanar imaging includes non-contrasted T1, T2, FLAIR, and Diffusion with ADC map seq uences. Images stored on PACS. LIMITATIONS: None. FINDINGS: ANATOMY: No anomalies. Normal vascular flow voids. Pituitary fossa normal. CSF SPACES: Normal in size and contour. No hemorrhage. CEREBRUM: A few high-signal intensity lesions scattered throughout the white matter on FLAIR imaging with distribution suggesting chronic micro-vascular ischemic change. Sulci and gyri normal in size a nd contour. No evidence of hemorrhage, mass or extraaxial fluid collection. POSTERIOR FOSSA: No signal alteration. No hemorrhage. No edema, masses or mass effect. Internal emma tory canals, cerebello-pontine angles, mastoids normal. DIFFUSION: Negative for acute or sub-acute infarction. ORBITS: No masses. Globes normal. PARANASAL SINUSES: No fluid levels. Mucosa normal. OTHER: No other significant finding. IMPRESSION: MINIMAL MICROVASCULAR ISCHEMIC CHANGE. OTHERWISE NORMAL STUDY. EVIDENCE OF ACUTE STROKE: NO. TECHNICAL DOCUMENTATION: JOB ID: [id number] [employer]- All Rights Reserved Reading location - IP/workstation name: [email or web address]
--- NOTE | 2019-03-22 18:24 | RADIOLOGY REPORT (SQ) ---
EXAM DESCRIPTION: MRA HEAD WITHOUT COMPLETED DATE/TIME: 03/22/2019 6:13 pm REASON FOR STUDY: 4; headache COMPARISON: None. TECHNIQUE: Axial 3-D aayx-en-swtgna acquisition imaging performed through the brain in the area of t he [place]. Images reformatted using 3-D MIPS. LIMITATIONS: None. FINDINGS: SOURCE IMAGES: No unexpected findings on source images. No large masses. 3-D MIP: No aneurysm. No occlusions. No significant stenosis. OTHER: No other significant finding. IMPRESSION: NORMAL MRA OF THE [place]. TECHNICAL DOCUMENTATION: JOB ID: [id number] [email or web address]- All Rights Reserved Reading location - IP/workstation name: [email or web address]
[2019-03-22] MEDS: INSULIN LISPRO 100 UNIT/ML 3 ML VIAL SUBCUT SCH (22:03)
[2019-03-22] MEDS: FAMOTIDINE 20 MG TABLET PO SCH (22:04)
[2019-03-22 22:37] LABS: TROPONIN I < 0.012 ng/mL
--- NOTE | 2019-03-23 00:27 | EKG REPORT ---
SEVERITY:- ABNORMAL ECG - SINUS RHYTHM LEFT BUNDLE BRANCH BLOCK : Confirmed by: Elena Bearden 23-Mar-2019 00:26:08
[2019-03-23 04:22] LABS: CREATINE KINASE MB 1.09 ng/mL (<4.55); TROPONIN I < 0.012 ng/mL
[2019-03-23] MEDS: PANTOPRAZOLE SODIUM 40 MG TABLET.DR PO SCH (05:15)
[2019-03-23] MEDS ORDERED: CLONIDINE HCL 0.1 MG TABLET PO ONE (07:15)
[2019-03-23] MEDS: INSULIN LISPRO 100 UNIT/ML 3 ML VIAL SUBCUT SCH ×4 (08:36→21:59)
[2019-03-23] MEDS ORDERED: CLONIDINE HCL 0.1 MG TABLET PO PRN (09:08)
[2019-03-23] MEDS: MULTIVITAMIN TABLET PO SCH (09:10)
[2019-03-23] MEDS: ATORVASTATIN CALCIUM 40 MG TABLET PO SCH (09:10)
[2019-03-23] MEDS: FAMOTIDINE 20 MG TABLET PO SCH ×2 (09:10→21:36)
[2019-03-23] MEDS: ENOXAPARIN SODIUM INJ 40 MG/0.4 ML DISP.SYRIN SUBCUT SCH (09:10)
[2019-03-23] MEDS: ASPIRIN 81 MG TABLET, ENT COATED PO SCH (09:10)
[2019-03-23] MEDS: METOPROLOL SUCCINATE 25 MG TAB.SR.24H PO SCH (09:10)
[2019-03-23] MEDS: METFORMIN HCL 500 MG TABLET PO SCH (09:10)
--- NOTE | 2019-03-23 09:12 | PDOC PROGRESS REPORT ---
Subjective Progress Note for:: 03/23/19 Subjective:: Patient is currently doing well Patient MRI and MRA was negative for any acute findings Patient was however this episode of a headache and blood pressures every morning for a long time even more than a several years Patient is received a clonidine dose this morning and looks like the patient's symptoms pretty much resolved According to the patient she had a headache with some nausea feeling Patient otherwise throughout the day blood pressure was all stable No chest pain no short of breath I believe patients probably underlying sleep apnea Patient snoring a lot at night according to the patient's Patient is probably outpatient sleep study to further evaluate Reason For Visit: UNCONTROL HTN,SYNCOPL Physical Exam Vital Signs: Temp Pulse Resp BP Pulse Ox 97.5 F 62 18 146/79 H 98 03/23/19 08:14 03/23/19 08:14 03/23/19 08:14 03/23/19 08:14 03/23/19 08:14 Intake & Output 03/22/19 03/23/19 03/24/19 06:59 06:59 06:59 Intake Total 300 Balance 300 Weight 81.8 kg General appearance: PRESENT: no acute distress, well-developed, well-nourished Head exam: PRESENT: atraumatic, normocephalic Eye exam: PRESENT: conjunctiva pink, EOMI, PERRLA. ABSENT: scleral icterus Ear exam: PRESENT: normal external ear exam Mouth exam: PRESENT: moist, tongue midline Neck exam: PRESENT: full ROM. ABSENT: carotid bruit, JVD, lymphadenopathy, thyromegaly Respiratory exam: PRESENT: clear to auscultation maude Cardiovascular exam: PRESENT: RRR. ABSENT: diastolic murmur, rubs, systolic murmur Pulses: PRESENT: normal dorsalis pedis pul, +2 pedal pulses bilateral Vascular exam: PRESENT: normal capillary refill GI/Abdominal exam: PRESENT: normal bowel sounds, soft. ABSENT: distended, guarding, mass, organolmegaly, rebound, tenderness Rectal exam: PRESENT: deferred Musculoskeletal exam: PRESENT: ambulatory Neurological exam: PRESENT: alert, awake, oriented to person, oriented to place, oriented to time, oriented to situation, CN II-XII grossly intact. ABSENT: motor sensory deficit Psychiatric exam: PRESENT: appropriate affect, normal mood. ABSENT: homicidal ideation, suicidal ideation Skin exam: PRESENT: dry, intact, warm. ABSENT: cyanosis, rash Results Laboratory Results: 03/22/19 11:30 03/22/19 11:30 03/22/19 03/22/19 03/22/19 11:30 11:30 11:30 WBC 11.1 H RBC 4.82 Hgb 13.6 Hct 41.0 MCV 85 MCH 28.1 MCHC 33.1 RDW 14.5 H Plt Count 319 Seg Neutrophils % 91.9 H Sodium 138.6 Potassium 4.2 Chloride 106 Carbon Dioxide 23 Anion Gap 10 BUN 12 Creatinine 0.71 Est GFR ( Amer) > 60 Glucose 130 H Calcium 9.9 Magnesium 1.7 Total Bilirubin 0.5 AST 22 Alkaline Phosphatase 85 Total Protein 7.0 Albumin 4.2 TSH 0.36 L 03/22/19 03/22/19 03/22/19 11:30 11:30 15:45 Creatine Kinase 79 67 CK-MB (CK-2) 1.26 Troponin I < 0.012 NT-Pro-B Natriuret Pep 1610 H 03/22/19 03/22/19 03/22/19 15:45 21:30 21:30 Creatine Kinase 59 CK-MB (CK-2) 0.99 1.00 Troponin I < 0.012 < 0.012 NT-Pro-B Natriuret Pep 03/23/19 03/23/19 03:19 03:19 Creatine Kinase 57 CK-MB (CK-2) 1.09 Troponin I < 0.012 NT-Pro-B Natriuret Pep Impressions: Head MRI 03/22/19 00:00 IMPRESSION: MINIMAL MICROVASCULAR ISCHEMIC CHANGE. OTHERWISE NORMAL STUDY. EVIDENCE OF ACUTE STROKE: NO. Head CT 03/22/19 12:32 IMPRESSION: NORMAL BRAIN CT WITHOUT CONTRAST. EVIDENCE OF ACUTE STROKE: NO. Brain MRI with MRA 03/22/19 16:01 IMPRESSION: NORMAL MRA OF THE [place] OF [place]. Assessment & Plan - Diagnosis (1) Hypertensive urgency Is this a current diagnosis for this admission?: Yes Plan: Currently all resolved We will get the renal artery ultrasound to rule out any renal artery stenosis But I believe patient's underlying mostly sleep apnea with the morning episode of the blood pressure was elevated with the symptoms Patient is probably need a sleep apnea study Patient otherwise other work-up is all negative's Will wait for the cardiology input (2) Coronary artery disease Qualifiers: Coronary Disease-Associated Artery/Lesion type: tetlin artery Associated angina: without angina Is this a current diagnosis for this admission?: Yes Plan: Patient have a left bundle branch block not sure was in New or previously Will get the serial cardiac enzyme Consult cardiology (3) Hyperlipidemia Qualifiers: Hyperlipidemia type: unspecified Qualified Code(s): E78.5 - Hyperlipidemia, unspecified Is this a current diagnosis for this admission?: Yes (4) Elevated brain natriuretic peptide (BNP) level Is this a current diagnosis for this admission?: Yes Plan: Consult cardiology rule out underlying heart failure most likely uncontrolled hypertension so related (5) Headache Qualifiers: Headache type: unspecified Headache chronicity pattern: unspecified pattern Intractability: not intractable Qualified Code(s): R51 - Headache Is this a current diagnosis for this admission?: Yes Plan: Patient MRI and MRA is negative We will refer outpatients neurology for further evaluations (6) Diabetes type 2, controlled Qualifiers: Diabetes mellitus detention insulin use: without car racer use Is this a current diagnosis for this admission?: Yes Plan: Continues to metformin and sliding scale - Time Time Spent with patient: 25-34 minutes Medications reviewed and adjusted accordingly: Yes Anticipated discharge: Home Within: within 24 hours - Plan Summary Plan Summary: Continues to current medications
[2019-03-23] MEDS ORDERED: LISINOPRIL 10 MG TABLET PO SCH (10:00)
[2019-03-23] MEDS ORDERED: CLONIDINE HCL 0.1 MG TABLET PO SCH (10:00)
--- NOTE | 2019-03-23 15:59 | RADIOLOGY REPORT (SQ) ---
EXAM DESCRIPTION: U/S LTD DUPLEX ART/DOLLY FLOW COMPLETED DATE/TIME: 03/23/2019 3:41 pm REASON FOR STUDY: US renal artery "uncontrolled HTN" COMPARISON: None. TECHNIQUE: Realtime and static grayscale images acquired. Selected color Doppler, velocities and spe ctral images recorded. LIMITATIONS: None. FINDINGS: RIGHT KIDNEY: RENAL ARTERY VELOCITIES: 49 cm/sec. Segmental artery velocity 46 cm/sec. RENAL VEIN: Color doppler flow present, patent. VELOCITY RATIO: 0.79. Normal waveforms. KIDNEY: 8.9 cm. No significant pathology. LEFT KIDNEY: RENAL ARTERY VELOCITIES: 45 cm/sec. Segmental artery velocity 47 cm/sec. RENAL VEIN: Color doppler flow present, patent. VELOCITY RATIO: 0.73. Normal waveforms. KIDNEY: 8.8 cm. No significant pathology. OTHER: No other significant finding. IMPRESSION: NO DOPPLER EVIDENCE OF HEMODYNAMICALLY SIGNIFICANT RENAL ARTERY STENOSIS. COMMENT: NORMAL RENAL ARTERY/AORTA VELOCITY RATIO IS LESS THAN OR EQUAL TO 3.5. TECHNICAL DOCUMENTATION: JOB ID: [id number] [employer]- All Rights Reserved Reading location - IP/workstation name: [email or web address]
--- NOTE | 2019-03-23 20:26 | PDOC CONSULTATION ---
Consultation-Blank Consultation: CARDIOLOGY CONSULTATION by Dr. Pilar Meier on 03/23/2019. Patient seen at 4:30 PM. 60 minutes spent on this patient more than 50% of time spent in direct patient care. REASON FOR CONSULTATION:: Episodic spikes in blood pressure, and with EKG showing left bundle branch block pattern. CONSULT REQUESTING PHYSICIAN: Dr. Keyon Champagne. HISTORY PRESENT ILLNESS: The patient is a 68-year-old female with known history of hypertension, hyperlipidemia and presumed chronic left bundle branch block pattern states that since the past few weeks has been having headaches in the morning and when she checks her blood pressure is very elevated. This is associated with nausea and subsequently the patient's blood pressure which is elevated comes down to within normal limits with medication when her headache and nausea also subsides. She denies any chest pain or discomfort. There is no palpitations. There is no flushing of the face. There is no PND orthopnea or shortness of breath. She seems to think that she has chronic left bundle branch block pattern. She denies history of coronary artery disease, although it is mentioned in the chart that the patient does have a history of CAD. She states she had a stress test in 2018 which is negative in [place]. There is no leg edema. There is no dizziness lightheadedness or or syncope. Past Medical History Cardiac Medical History: Reports:? Coronary Artery Disease[Patient denies history of coronary artery disease], Hypertension. She has a history of hyperlipidemia. Denies: Myocardial Infarction Pulmonary Medical History: Denies: Asthma, Bronchitis, Chronic Obstructive Pulmonary Disease (COPD), Pneumonia Neurological Medical History: Denies: Seizures. No history of migraines. No history of TIA or CVA. Endocrine Medical History: Reports: Diabetes Mellitus Type 2. No history of thyroid disease. Musculoskeltal Medical History: Reports: Arthritis - HANDS/BACK Psychiatric Medical History: Reports: General Anxiety Disorder Hematology: Denies: Anemia 1 GENITOURINARY: Denies chronic kidney disease no history of frequent or recurrent UTIs. ADVANCED all caps directives: The patient is a DNR. Her sister is a surrogate healthcare decision maker. Past Surgical History Past Surgical History: Reports: Hysterectomy Social History Information Source: Patient Smoking Status: Unknown if Ever Smoked Electronic Cigarette use?: No Frequency of Alcohol Use: None Hx Recreational Drug Use: No Hx Prescription Drug Abuse: No Family History Family History: There is no history of coronary artery disease or hypertension or diabetes mellitus in the family. She states her grandmother had cancer of breast. Medication/Allergy Home Medications: Aspirin [Ecotrin 81 mg EC Tablet] 324 mg PO DAILY 03/22/19 Atorvastatin Calcium [Lipitor 40 mg Tablet] 40 mg PO DAILY 03/22/19 Cyclobenzaprine HCl [Flexeril 10 mg Tablet] 10 mg PO HSP PRN 03/22/19 Hydrochlorothiazide [Hydrodiuril 25 mg Tablet] 25 mg PO DAILY 03/22/19 Lisinopril [Prinivil 40 mg Tablet] 40 mg PO DAILY 03/22/19 Metformin HCl [Metformin HCl ER] 500 mg PO DAILY 03/22/19 Metoprolol Succinate [Toprol Xl 25 mg Tab.sr] 25 mg PO DAILY 03/22/19 Multivit-Min/Iron/Folic/Eze990 [Hair, Skin and Nails Caplet] 1 tab PO DAILY 03/22/19 Omeprazole 40 mg PO DAILY 03/22/19 Allergies/Adverse Reactions: No Known Allergies Allergy (Verified 10/22/17 09:39) Review of Systems Constitutional: ABSENT: chills, fever(s), headache(s), weight gain, weight loss Eyes: ABSENT: visual disturbances Ears: ABSENT: hearing changes Nose, Mouth, and Throat: PRESENT: headache(s) Cardiovascular: ABSENT: chest pain, dyspnea on exertion, edema, orthropnea, palpitations Respiratory: ABSENT: cough, hemoptysis Gastrointestinal: ABSENT: abdominal pain, constipation, diarrhea, hematemesis, hematochezia, nausea, vomiting Genitourinary: ABSENT: dysuria, hematuria Musculoskeletal: ABSENT: joint swelling Integumentary: ABSENT: rash, wounds Neurological: ABSENT: abnormal gait, abnormal speech, confusion, dizziness, focal weakness, syncope Psychiatric: ABSENT: anxiety, depression, homidical ideation, suicidal ideation Endocrine: ABSENT: cold intolerance, heat intolerance, menstrual abnormalities, polydipsia, polyuria Hematologic/Lymphatic: ABSENT: easy bleeding, easy bruising, lymphadenopathy. Current Medications Generic Name Dose Route Start Last Admin Trade Name Freq PRN Reason Stop Dose Admin Acetaminophen 650 mg 03/22/19 15:01 Tylenol 325 Mg Tablet PO 04/21/19 15:00 Q4HP PRN FOR PAIN OR TEMP Aspirin 324 mg 03/23/19 10:00 03/23/19 09:10 Ecotrin 81 Mg Ec Tablet PO 04/22/19 09:59 324 mg DAILY ETHAN Administration Atorvastatin Calcium 40 mg 03/23/19 10:00 03/23/19 09:10 Lipitor 40 Mg Tablet PO 04/22/19 09:59 40 mg DAILY ETHAN Administration Clonidine 0.1 mg 03/23/19 09:08 Catapres 0.1 Mg Tablet PO 04/22/19 09:07 Q8HP PRN GIVE FOR SBP > 170 Cyclobenzaprine HCl 10 mg 03/22/19 16:43 Flexeril 10 Mg Tablet PO 04/21/19 16:42 HSP PRN FOR MUSCLE SPASMS Dextrose 12.5 gm 03/22/19 16:44 Dextrose Inj 50% Syringe (25 Gm/50 Ml) IV 04/21/19 16:43 PRN PRN FOR BG 50-69 IN ALERT PATIENT Protocol Dextrose 25 gm 03/22/19 16:44 Dextrose Inj 50% Syringe (25 Gm/50 Ml) IV 04/21/19 16:43 PRN PRN PER PROTOCOL Protocol Enoxaparin Sodium 40 mg 03/23/19 10:00 03/23/19 09:10 Lovenox Inj 40 Mg/0.4 Ml Disp.Syrin SUBCUT 04/22/19 09:59 40 mg DAILY ETHAN Administration Famotidine 20 mg 03/22/19 22:00 03/23/19 09:10 Pepcid 20 Mg Tablet PO 04/21/19 21:59 20 mg Q12 ETHAN Administration Glucagon 1 mg 03/22/19 16:44 Glucagen Inj 1 Mg Vial IM 04/21/19 16:43 PRN PRN Evaluate for BG < 70 Protocol Glucose 15 gm 03/22/19 16:44 Glutose 40% Gel 15 Gm Tube PO 04/21/19 16:43 PRN PRN FOR BG 50-69 IN ALERT PATIENT Protocol Glucose 30 gm 03/22/19 16:44 Glutose 40% Gel 15 Gm Tube PO 04/21/19 16:43 PRN PRN FOR BG < 50 IN ALERT PATIENT Protocol Insulin Human Lispro 0 - 12 unit 03/22/19 22:00 03/23/19 17:36 Humalog Insulin 100 Unit/1 Ml 3 Ml Vial SUBCUT 04/21/19 21:59 Not Given ACHS ETHAN Protocol Lisinopril 40 mg 03/23/19 10:00 03/23/19 09:10 Prinivil 10 Mg Tablet PO 04/22/19 09:59 40 mg DAILY ETHAN Administration Metformin HCl 500 mg 03/23/19 10:00 03/23/19 09:10 Glucophage 500 Mg Tablet PO 04/22/19 09:59 500 mg DAILY ETHAN Administration Metoprolol Succinate 25 mg 03/23/19 10:00 03/23/19 09:10 Toprol Xl 25 Mg Tab.Sr PO 04/22/19 09:59 25 mg DAILY ETHAN Administration Multivitamins 1 tab 03/23/19 10:00 03/23/19 09:10 Tab-A-Wayne (Multiple Vitamin) Tablet PO 04/22/19 09:59 1 tab DAILY ETHAN Administration Pantoprazole Sodium 40 mg 03/23/19 06:00 03/23/19 05:[address] Tablet PO 04/22/19 05:59 Not Given Q6AM ETHAN Discontinued Medications Generic Name Dose Route Start Last Admin Trade Name Jennifer PRN Reason Stop Dose Admin Clonidine 0.1 mg 03/23/19 10:00 Catapres 0.1 Mg Tablet PO 04/22/19 09:59 DAILY ETHAN Clonidine 0.1 mg 03/23/19 07:15 03/23/19 07:28 Catapres 0.1 Mg Tablet PO 03/23/19 07:16 0.1 mg NOW ONE Administration Lorazepam 1 mg 03/22/19 16:12 03/22/19 19:25 Ativan Inj 2 Mg/1 Ml Vial IV 03/22/19 16:13 Not Given NOW ONE 1PHYSICAL EXAMINATION: The patient is moderately obese. She is well-groomed in no acute distress. Selected Entries 03/23/19 15:26 Temperature 97.3 F Temperature Oral Source Pulse Rate 64 Respiratory 16 Rate Blood Pressure 149/74 H Blood Pressure 99 Mean BP Location Left Arm BP Position Supine O2 Sat by Pulse 98 Oximetry Oxygen Delivery Room Air Method HEAD: Atraumatic, normocephalic. EYES: Pupils equal round and reactive to light, extraocular movements intact, sclera anicteric, conjunctiva are normal. ENT: TMs normal, nares patent, oropharynx clear without exudates. Moist mucous membranes. NECK: Normal range of motion, supple without lymphadenopathy or JVD. Carotids are equal there is no bruits. There is no thyromegaly. There is no accessory muscles of respiration in use. Trachea central LUNGS: Breath sounds clear to auscultation bilaterally and equal. No wheezes rales or rhonchi. On palpation there is no chest wall tenderness. HEART: S1-S2 is heard. S1 is of normal intensity. There is no S3 gallop. There is no S4 gallop. There is systolic murmur left sternal border and apex without radiation. There is no rub.. ABDOMEN: Soft, nontender, normoactive bowel sounds. There is no hepatosplenic megaly no guarding, no rebound. No masses appreciated. EXTREMITIES: Normal range of motion, no pitting or edema. No clubbing or cyanosis. Femorals are well felt. There is no femoral bruits. Leg pulses are well felt. There is no DVT or cellulitis. There is no calf tenderness NEUROLOGICAL: Cranial nerves II through XII grossly intact. Normal speech, normal gait. The patient is awake alert oriented x3 with no focal deficits. PSYCH: Normal mood, normal affect. The patient judgment and insight are intact SKIN: Warm, Dry, normal turgor, no rashes or lesions noted. There is no petechia or ecchymosis. EKG: Sinus tachycardia with left bundle branch block pattern. Subsequent EKG EKG shows sinus rhythm with left bundle branch block rhythm. Labs- Entire Visit 03/22/19 03/22/19 03/22/19 11:30 11:30 11:30 WBC 11.1 H RBC 4.82 Hgb 13.6 Hct 41.0 MCV 85 MCH 28.1 MCHC 33.1 RDW 14.5 H Plt Count 319 Lymph % (Auto) 7.1 L Perkins % (Auto) 1.0 L Eos % (Auto) 0.0 Baso % (Auto) 0.0 Absolute Neuts (auto) 10.2 H Absolute Lymphs (auto) 0.8 Absolute Monos (auto) 0.1 Absolute Eos (auto) 0.0 Absolute Basos (auto) 0.0 Seg Neutrophils % 91.9 H PT 13.5 INR 1.03 APTT 27.6 Sodium 138.6 Potassium 4.2 Chloride 106 Carbon Dioxide 23 Anion Gap 10 BUN 12 Creatinine 0.71 Est GFR ( Amer) > 60 Est GFR (MDRD) Non-Af > 60 Glucose 130 H POC Glucose Calcium 9.9 Magnesium 1.7 Total Bilirubin 0.5 Direct Bilirubin 0.1 Neonat Total Bilirubin Not Reportable Neonat Direct Bilirubin Not Reportable Neonat Indirect Bili Not Reportable AST 22 ALT 18 Alkaline Phosphatase 85 Creatine Kinase 79 CK-MB (CK-2) Troponin I NT-Pro-B Natriuret Pep Total Protein 7.0 Albumin 4.2 TSH 03/22/19 03/22/19 03/22/19 11:30 11:30 15:45 WBC RBC Hgb Hct MCV MCH MCHC RDW Plt Count Lymph % (Auto) Perkins % (Auto) Eos % (Auto) Baso % (Auto) Absolute Neuts (auto) Absolute Lymphs (auto) Absolute Monos (auto) Absolute Eos (auto) Absolute Basos (auto) Seg Neutrophils % PT INR APTT Sodium Potassium Chloride Carbon Dioxide Anion Gap BUN Creatinine Est GFR ( Amer) Est GFR (MDRD) Non-Af Glucose POC Glucose Calcium Magnesium Total Bilirubin Direct Bilirubin Neonat Total Bilirubin Neonat Direct Bilirubin Neonat Indirect Bili AST ALT Alkaline Phosphatase Creatine Kinase 67 CK-MB (CK-2) 1.26 Troponin I < 0.012 NT-Pro-B Natriuret Pep 1610 H Total Protein Albumin TSH 0.36 L 03/22/19 03/22/19 03/22/19 15:45 21:30 21:30 WBC RBC Hgb Hct MCV MCH MCHC RDW Plt Count Lymph % (Auto) Perkins % (Auto) Eos % (Auto) Baso % (Auto) Absolute Neuts (auto) Absolute Lymphs (auto) Absolute Monos (auto) Absolute Eos (auto) Absolute Basos (auto) Seg Neutrophils % PT INR APTT Sodium Potassium Chloride Carbon Dioxide Anion Gap BUN Creatinine Est GFR ( Amer) Est GFR (MDRD) Non-Af Glucose POC Glucose Calcium Magnesium Total Bilirubin Direct Bilirubin Neonat Total Bilirubin Neonat Direct Bilirubin Neonat Indirect Bili AST ALT Alkaline Phosphatase Creatine Kinase 59 CK-MB (CK-2) 0.99 1.00 Troponin I < 0.012 < 0.012 NT-Pro-B Natriuret Pep Total Protein Albumin TSH 03/22/19 03/23/19 03/23/19 21:42 03:19 03:19 WBC RBC Hgb Hct MCV MCH MCHC RDW Plt Count Lymph % (Auto) Perkins % (Auto) Eos % (Auto) Baso % (Auto) Absolute Neuts (auto) Absolute Lymphs (auto) Absolute Monos (auto) Absolute Eos (auto) Absolute Basos (auto) Seg Neutrophils % PT INR APTT Sodium Potassium Chloride Carbon Dioxide Anion Gap BUN Creatinine Est GFR ( Amer) Est GFR (MDRD) Non-Af Glucose POC Glucose 118 H Calcium Magnesium Total Bilirubin Direct Bilirubin Neonat Total Bilirubin Neonat Direct Bilirubin Neonat Indirect Bili AST ALT Alkaline Phosphatase Creatine Kinase 57 CK-MB (CK-2) 1.09 Troponin I < 0.012 NT-Pro-B Natriuret Pep Total Protein Albumin TSH 03/23/19 03/23/19 03/23/19 08:14 11:11 16:54 WBC RBC Hgb Hct MCV MCH MCHC RDW Plt Count Lymph % (Auto) Perkins % (Auto) Eos % (Auto) Baso % (Auto) Absolute Neuts (auto) Absolute Lymphs (auto) Absolute Monos (auto) Absolute Eos (auto) Absolute Basos (auto) Seg Neutrophils % PT INR APTT Sodium Potassium Chloride Carbon Dioxide Anion Gap BUN Creatinine Est GFR ( Amer) Est GFR (MDRD) Non-Af Glucose POC Glucose 93 127 H 128 H Calcium Magnesium Total Bilirubin Direct Bilirubin Neonat Total Bilirubin Neonat Direct Bilirubin Neonat Indirect Bili AST ALT Alkaline Phosphatase Creatine Kinase CK-MB (CK-2) Troponin I NT-Pro-B Natriuret Pep Total Protein Albumin TSH Head MRI 03/22/19 00:00 IMPRESSION: MINIMAL MICROVASCULAR ISCHEMIC CHANGE. OTHERWISE NORMAL STUDY. EVIDENCE OF ACUTE STROKE: NO. Head CT 03/22/19 12:32 IMPRESSION: NORMAL BRAIN CT WITHOUT CONTRAST. EVIDENCE OF ACUTE STROKE: NO. Brain MRI with MRA 03/22/19 16:01 IMPRESSION: NORMAL MRA OF THE [place] OF [place]. Vascular Ultrasound 03/23/19 00:00 IMPRESSION: NO DOPPLER EVIDENCE OF HEMODYNAMICALLY SIGNIFICANT RENAL ARTERY STENOSIS. IMPRESSION/RECOMMENDATION 1. Hypertension with episodic elevation of blood pressure in the morning. Note the patient's renal artery Dopplers are negative for renal artery stenosis. Most likely the patient needs a late nightly dose of blood pressure medications. Would recommend changing the patient's lisinopril to 20 mg p.o. twice daily and increasing his as tolerated. Note there is no Doppler evidence of renal artery stenosis of significance. 2. Left bundle branch block pattern most likely chronic. The patient's troponins are negative. 3. Diabetes mellitus type 2 [id number]: Continue metformin 4. Hyperlipidemia: Continue statins. 5. Headache and nausea most likely related to elevated blood pressure. HABILITATION ASSISTANT work-up is negative. 6. Multiple CAD risk factors namely age, hypertension, hyperlipidemia, and diabetes mellitus. Later in view of the patient's left bundle branch block pattern will recommend outpatient IV Lexiscan Cardiolite stress test. Medications reviewed. Medications adjusted. Medication regimen and management plan discussed with attending physician on the case. Medical decision making is of moderate to high complexity. 60 minutes spent on this patient with more than 50% of time spent in direct patient care. Case discussed with Dr. Champagne. Will follow.
--- NOTE | 2019-03-24 02:18 | EKG REPORT ---
SEVERITY:- ABNORMAL ECG - SINUS RHYTHM LEFT BUNDLE BRANCH BLOCK : Confirmed by: Elena Bearden 24-Mar-2019 02:17:56
[2019-03-24] MEDS: PANTOPRAZOLE SODIUM 40 MG TABLET.DR PO SCH (05:03)
[2019-03-24] MEDS ORDERED: ONDANSETRON HCL INJ/PF 4 MG/2 ML SDV IV PRN (07:23)
[2019-03-24 07:43] VITALS: BP 145/76
[2019-03-24] MEDS: INSULIN LISPRO 100 UNIT/ML 3 ML VIAL SUBCUT SCH ×2 (08:24→12:05)
[2019-03-24] MEDS: METFORMIN HCL 500 MG TABLET PO SCH (09:23)
[2019-03-24] MEDS: METOPROLOL SUCCINATE 25 MG TAB.SR.24H PO SCH (09:23)
[2019-03-24] MEDS: ATORVASTATIN CALCIUM 40 MG TABLET PO SCH (09:24)
[2019-03-24] MEDS: ASPIRIN 81 MG TABLET, ENT COATED PO SCH (09:24)
[2019-03-24] MEDS: ENOXAPARIN SODIUM INJ 40 MG/0.4 ML DISP.SYRIN SUBCUT SCH (09:24)
[2019-03-24] MEDS: FAMOTIDINE 20 MG TABLET PO SCH (09:24)
[2019-03-24] MEDS: MULTIVITAMIN TABLET PO SCH (09:24)
[2019-03-24] MEDS ORDERED: LISINOPRIL 10 MG TABLET PO SCH (10:00)
--- NOTE | 2019-03-24 13:45 | PDOC DISCHARGE SUMMARY ---
Impression - Admit/DC Date/PCP Admission Date/Primary Care Provider: 03/22/19 14:09 CECE HUTCHINSON MD Discharge Date: 03/24/19 - Discharge Diagnosis (1) Hypertensive urgency Is this a current diagnosis for this admission?: Yes (2) Coronary artery disease Is this a current diagnosis for this admission?: Yes (3) Hyperlipidemia Is this a current diagnosis for this admission?: Yes (4) Elevated brain natriuretic peptide (BNP) level Is this a current diagnosis for this admission?: Yes (5) Headache Is this a current diagnosis for this admission?: Yes (6) Diabetes type 2, controlled Is this a current diagnosis for this admission?: Yes - Assessment Summary: This is a 68-year-old female is presenting the emergency department with the elevated blood pressures not feeling well According to the patient she has always in the morning feeling nausea and headache and a blood pressure is elevated for so many years In the emergency department patient's underwent for the CT of the head and all blood work was all stable Received a clonidine dose from EMS and works very well Patient admitting in the hospital for further evaluations Since further underwent for the MRI and MRA of the head which is negative for any acute finding Patient underwent for the renal artery ultrasound was negative for any stenosis An EKG cardiac enzyme is all stable and seen by the cardiology suggest follow outpatients stress test Patient had a stress test done in May last year was all normal In the hospitals patient's received the clonidine which also works same way much better At this point as per cardiology suggest divide the lisinopril twice a day morning and evening and clonidine 0.1 mg every 8 hours as needed Patient otherwise walking the hallway without any problems No neurological symptoms I think patients probably need a sleep study and further neurology evaluations will refer as outpatient with ongoing chronic problem for a long time Already seen by the cardiology clear will discharge as per discussed with the cardiology Follow in office 1 week Check of blood pressure at home daily Low-sodium diet - Additional Information Resuscitation Status: Do Not Resuscitate Discharge Diet: Cardiac Discharge Activity: Activity As Tolerated Referrals: MCKINLEY LANDEROS MD [NO LOCAL MD] - 04/01/19 10:00 am TERESA MARIE MD [ACTIVE STAFF] - 03/31/19 10:00 am () HERMINIO MOORE MD [ACTIVE STAFF] - 03/31/19 2:00 pm Prescriptions: Clonidine HCl [Catapres 0.1 mg Tablet] 0.1 mg PO Q8HP PRN #90 tablet PRN Reason: Lisinopril 20 mg PO BID #60 tablet Ondansetron HCl [Zofran 4 mg Tablet] 1 tab PO Q4H PRN #20 tablet PRN Reason: Home Medications: Aspirin [Ecotrin 81 mg EC Tablet] 324 mg PO DAILY 03/22/19 Atorvastatin Calcium [Lipitor 40 mg Tablet] 40 mg PO DAILY 03/22/19 Cyclobenzaprine HCl [Flexeril 10 mg Tablet] 10 mg PO HSP PRN 03/22/19 Hydrochlorothiazide [Hydrodiuril 25 mg Tablet] 25 mg PO DAILY 03/22/19 Lisinopril [Prinivil 40 mg Tablet] 40 mg PO DAILY 03/22/19 Metformin HCl [Metformin HCl ER] 500 mg PO DAILY 03/22/19 Metoprolol Succinate [Toprol Xl 25 mg Tab.sr] 25 mg PO DAILY 03/22/19 Multivit-Min/Iron/Folic/Obg284 [Hair, Skin and Nails Caplet] 1 tab PO DAILY 03/22/19 Omeprazole 40 mg PO DAILY 03/22/19 Clonidine HCl [Catapres 0.1 mg Tablet] 0.1 mg PO Q8HP PRN #90 tablet 03/24/19 Lisinopril 20 mg PO BID #60 tablet 03/24/19 Ondansetron HCl [Zofran 4 mg Tablet] 1 tab PO Q4H PRN #20 tablet 03/24/19 History of Present Illiness History of Present Illness: ADRI SHAH is a 68 year old female This is a 68-year-old female with a history of the hypertension hyperlipidemia coronary artery disease came to the office last week with blood pressure issues increase the beta-akbar still blood pressure is elevated him yesterday added the hydrochlorothiazide. Patient went to the [facility] today and patient's noticed the headaches not feeling well check of blood pressure was 211 systolic called EMS. Patient is receiving the 0.2 mg clonidine when patients came to the emergency department for systolic blood pressure was 140 and patient's denied any headache no other symptoms Patient's initial CT head was all negatives Patient have a history of coronary artery disease and I believe left bundle branch block and the previously seen in the [place] cardiology had a stress test and echocardiogram done in the May 2018 per patient and all stable Patient is currently denied any chest pain no short of breath Physical Exam Vital Signs: Temp Pulse Resp BP Pulse Ox 97.5 F 58 L 18 145/76 H 99 03/24/19 12:29 03/24/19 12:29 03/24/19 12:29 03/24/19 07:32 03/24/19 12:29 Intake & Output 03/23/19 03/24/19 03/25/19 06:59 06:59 06:59 Intake Total 300 1241 Balance 300 1241 Weight 81.8 kg 80.7 kg Results Laboratory Results: WBC 11.1 10^3/uL (4.0-10.5) H 03/22/19 11:30 RBC 4.82 10^6/uL (3.72-5.28) 03/22/19 11:30 Hgb 13.6 g/dL (12.0-15.5) 03/22/19 11:30 Hct 41.0 % (36.0-47.0) 03/22/19 11:30 MCV 85 fl (80-97) 03/22/19 11:30 MCH 28.1 pg (27.0-33.4) 03/22/19 11:30 MCHC 33.1 g/dL (32.0-36.0) 03/22/19 11:30 RDW 14.5 % (11.5-14.0) H 03/22/19 11:30 Plt Count 319 10^3/uL (150-450) 03/22/19 11:30 Lymph % (Auto) 7.1 % (13-45) L 03/22/19 11:30 Thomas % (Auto) 1.0 % (3-13) L 03/22/19 11:30 Eos % (Auto) 0.0 % (0-6) 03/22/19 11:30 Baso % (Auto) 0.0 % (0-2) 03/22/19 11:30 Absolute Neuts (auto) 10.2 10^3/uL (1.7-8.2) H 03/22/19 11:30 Absolute Lymphs (auto) 0.8 10^3/uL (0.5-4.7) 03/22/19 11:30 Absolute Monos (auto) 0.1 10^3/uL (0.1-1.4) 03/22/19 11:30 Absolute Eos (auto) 0.0 10^3/uL (0.0-0.6) 03/22/19 11:30 Absolute Basos (auto) 0.0 10^3/uL (0.0-0.2) 03/22/19 11:30 Seg Neutrophils % 91.9 % (42-78) H 03/22/19 11:30 PT 13.5 SEC (11.4-15.4) 03/22/19 11:30 INR 1.03 03/22/19 11:30 APTT 27.6 SEC (23.5-35.8) 03/22/19 11:30 Sodium 138.6 mmol/L (137-145) 03/22/19 11:30 Potassium 4.2 mmol/L (3.6-5.0) 03/22/19 11:30 Chloride 106 mmol/L (98-107) 03/22/19 11:30 Carbon Dioxide 23 mmol/L (22-30) 03/22/19 11:30 Anion Gap 10 (5-19) 03/22/19 11:30 BUN 12 mg/dL (7-20) 03/22/19 11:30 Creatinine 0.71 mg/dL (0.52-1.25) 03/22/19 11:30 Est GFR ( Amer) > 60 (>60) 03/22/19 11:30 Est GFR (MDRD) Non-Af > 60 (>60) 03/22/19 11:30 Glucose 130 mg/dL (75-110) H 03/22/19 11:30 POC Glucose 83 mg/dL (70-110) 03/24/19 11:35 Calcium 9.9 mg/dL (8.4-10.2) 03/22/19 11:30 Magnesium 1.7 mg/dL (1.6-2.3) 03/22/19 11:30 Total Bilirubin 0.5 mg/dL (0.2-1.3) 03/22/19 11:30 Direct Bilirubin 0.1 mg/dL (0.0-0.4) 03/22/19 11:30 Neonat Total Bilirubin Not Reportable 03/22/19 11:30 Neonat Direct Bilirubin Not Reportable 03/22/19 11:30 Neonat Indirect Bili Not Reportable 03/22/19 11:30 AST 22 U/L (14-36) 03/22/19 11:30 ALT 18 U/L (<35) 03/22/19 11:30 Alkaline Phosphatase 85 U/L (38-126) 03/22/19 11:30 Creatine Kinase 57 U/L (30-135) 03/23/19 03:19 CK-MB (CK-2) 1.09 ng/mL (<4.55) 03/23/19 03:19 Troponin I < 0.012 ng/mL 03/23/19 03:19 NT-Pro-B Natriuret Pep 1610 pg/mL (5-900) H 03/22/19 11:30 Total Protein 7.0 g/dL (6.3-8.2) 03/22/19 11:30 Albumin 4.2 g/dL (3.5-5.0) 03/22/19 11:30 TSH 0.36 uIU/mL (0.47-4.68) L 03/22/19 11:30 03/22/19 03/22/19 03/22/19 11:30 15:45 21:30 CK-MB (CK-2) 1.26 0.99 1.00 Troponin I < 0.012 < 0.012 < 0.012 NT-Pro-B Natriuret Pep 1610 H 03/23/19 03:19 CK-MB (CK-2) 1.09 Troponin I < 0.012 NT-Pro-B Natriuret Pep Impressions: Head MRI 03/22/19 00:00 IMPRESSION: MINIMAL MICROVASCULAR ISCHEMIC CHANGE. OTHERWISE NORMAL STUDY. EVIDENCE OF ACUTE STROKE: NO. Head CT 03/22/19 12:32 IMPRESSION: NORMAL BRAIN CT WITHOUT CONTRAST. EVIDENCE OF ACUTE STROKE: NO. Brain MRI with MRA 03/22/19 16:01 IMPRESSION: NORMAL MRA OF THE [place]. Vascular Ultrasound 03/23/19 00:00 IMPRESSION: NO DOPPLER EVIDENCE OF HEMODYNAMICALLY SIGNIFICANT RENAL ARTERY STENOSIS. Stroke Is this a Stroke Patient?: No Acute Heart Failure - Is this a Heart Failure Patient?: No
== END 2019-03-24 12:55 | disposition home or self-care (01) ==
LOC: ER 10:49 → EH 14:09 → INTOOBSV 15:01 → OBSVTOIN 15:01 → 3S 18:14
PROVIDERS: ADMIT Family Medicine; ATTEND Family Medicine
DX: I16.0 Hypertensive urgency (principal); R74.8 Abnormal levels of other serum enzymes; R51 Headache; E11.9 Type 2 diabetes mellitus without complications; Z66 Do not resuscitate; Z79.84 Long term (current) use of oral hypoglycemic drugs; Z79.82 Long term (current) use of aspirin; E78.5 Hyperlipidemia, unspecified; I25.10 Atherosclerotic heart disease of native coronary artery without angina pectoris; I44.7 Left bundle-branch block, unspecified; M19.042 Primary osteoarthritis, left hand; M19.041 Primary osteoarthritis, right hand; M46.90 Unspecified inflammatory spondylopathy, site unspecified; F41.1 Generalized anxiety disorder
CPT/HCPCS: 93005 ×2; 99285; 36415 ×2; 82553 ×2; 82962 ×3; 82550 ×2; 83735; 84443; 85025; 85610; 85730; 80053; 84484 ×2; 83880; 70551; 70544; 93976; 70450; 93010 ×2; G0378 ×2; A9270 ×16; J1650 ×2

== ENCOUNTER 2019-03-30 07:52 | Emergency (ER) | payer MEDICARE ==
[2019-03-30] MEDS ORDERED: ACETAMINOPHEN 325 MG TABLET PO ONE (09:22)
--- NOTE | 2019-03-30 09:24 | ER Document Report ---
ED Medical Screen (RME) - General Chief Complaint: High Blood Pressure Stated Complaint: BLOOD PRESSURE ISSUE Time Seen by Provider: 03/30/19 09:12 Primary Care Provider: HERMINIO MOORE MD [Primary Care Provider] - Follow up as needed Information source: Patient Notes: Patient presents complaining of elevated blood pressure around 3:00 this morning. Patient states her blood pressure was 182/110. Patient complains of feeling weak and tired. Blood pressure has since come back down. Patient does complain of frontal headache pain nausea and vomiting x1 episode. Patient states she has had chest pain for the past week. Patient states she did already take 4 baby aspirin this morning. hx: Hypertension, [place], degenerative disc disease I have greeted and performed a rapid initial assessment of this patient. A comprehensive ED assessment and evaluation of the patient, analysis of test results and completion of the medical decision making process will be conducted by additional ED providers. TRAVEL OUTSIDE OF THE [place] IN LAST 30 DAYS: No - Related Data Allergies/Adverse Reactions: No Known Allergies Allergy (Verified 03/30/19 07:59) Past Medical History - Past Medical History Cardiac Medical History: Reports: Hx Coronary Artery Disease, Hx Hypertension Denies: Hx Heart Attack Pulmonary Medical History: Denies: Hx Asthma, Hx Bronchitis, Hx COPD, Hx Pneumonia Neurological Medical History: Denies: Hx Cerebrovascular Accident, Hx Seizures Endocrine Medical History: Reports: Hx Diabetes Mellitus Type 2 Renal/ Medical History: Denies: Hx Peritoneal Dialysis Musculoskeltal Medical History: Reports Hx Arthritis - HANDS/BACK Psychiatric Medical History: Denies: Hx Depression Past Surgical History: Reports: Hx Hysterectomy - Immunizations Hx Diphtheria, Pertussis, Tetanus Vaccination: Yes Physical Exam - Vital signs Vitals: Temp Pulse Resp BP Pulse Ox 98.3 F 71 16 157/99 H 96 03/30/19 08:00 03/30/19 08:00 03/30/19 08:00 03/30/19 08:00 03/30/19 08:00 - Respiratory Respiratory status: No respiratory distress Chest status: Tender Chest palpation: Normal - Cardiovascular Rhythm: Regular Heart sounds: S1 appreciated, S2 appreciated Course - Vital Signs Vital signs: Temp Pulse Resp BP Pulse Ox 98.3 F 71 16 157/99 H 96 03/30/19 08:00 03/30/19 08:00 03/30/19 08:00 03/30/19 08:00 03/30/19 08:00 Doctor's Discharge - Discharge Referrals: HERMINIO MOORE MD [Primary Care Provider] - Follow up as needed
[2019-03-30 10:00] LABS: ABSOLUTE BASOPHILS # (AUTO) 0.1 10^3/uL (0.0-0.2); ABSOLUTE EOSINOPHILS # (AUTO) 0.2 10^3/uL (0.0-0.6); ABSOLUTE LYMPHOCYTES (AUTO) 2.2 10^3/uL (0.5-4.7); ABSOLUTE MONOCYTES (AUTO) 0.5 10^3/uL (0.1-1.4); ABSOLUTE NEUT (AUTO) 4.1 10^3/uL (1.7-8.2); EOSINOPHILS % (AUTO) 2.6 % (0-6); HEMATOCRIT 38.5 % (36.0-47.0); HEMOGLOBIN 12.6 g/dL (12.0-15.5); LYMPHOCYTES % (AUTO) 30.7 % (13-45); MEAN CORPUSCULAR HGB CONC 32.7 g/dL (32.0-36.0); MEAN CORPUSCULAR VOLUME 86 fl (80-97); MONOCYTES % (AUTO) 7.4 % (3-13); PLATELET COUNT 274 10^3/uL (150-450); RED BLOOD COUNT 4.49 10^6/uL (3.72-5.28); RED CELL DISTRIBUTION WIDTH 14.4 % (11.5-14.0); SEGMENTED NEUTROPHILS % (AUTO) 58.3 % (42-78); TOTAL CELLS COUNTED % (AUTO) 100 %
--- NOTE | 2019-03-30 10:04 | RADIOLOGY REPORT (SQ) ---
EXAM DESCRIPTION: CHEST 2 VIEWS COMPLETED DATE/TIME: 03/30/2019 9:52 am REASON FOR STUDY: cp, elev BP COMPARISON: 07/29/2018 EXAM PARAMETERS: NUMBER OF VIEWS: two views TECHNIQUE: Digital Frontal and Lateral radiographic views of the chest acquired. RADIATION DOSE: NA LIMITATIONS: none FINDINGS: LUNGS AND PLEURA: No opacities, masses or pneumothorax. No pleural effusion. MEDIASTINUM AND HILAR STRUCTURES: No masses or contour abnormalities. HEART AND VASCULAR STRUCTURES: Heart normal size. No evidence for failure. BONES: No acute findings. HARDWARE: None in the chest. OTHER: No other significant finding. IMPRESSION: NO ACUTE RADIOGRAPHIC FINDING IN THE CHEST. TECHNICAL DOCUMENTATION: JOB ID: [id number] [employer]- All Rights Reserved Reading location - IP/workstation name: [email or web address]
[2019-03-30 10:15] LABS: APPEARANCE,URINE CLEAR; BILIRUBIN,URINE NEGATIVE (NEGATIVE); COLOR,URINE STRAW; GLUCOSE, URINE NEGATIVE (NEGATIVE); KETONES,URINE NEGATIVE (NEGATIVE); PROTEIN,URINE NEGATIVE (NEGATIVE); URINE SPECIFIC GRAVITY 1.006; UROBILINOGEN,URINE NEGATIVE mg/dL (<2.0)
--- NOTE | 2019-03-30 10:16 | ER Document Report ---
ED General - General Chief Complaint: High Blood Pressure Stated Complaint: BLOOD PRESSURE ISSUE Time Seen by Provider: 03/30/19 09:12 Primary Care Provider: HERMINIO MOORE MD [Primary Care Provider] - Follow up as needed Notes: HPI: 68-year-old female with past medical history as recorded that I admitted for hypertensive urgency last week secondary to a headache and high blood pressure. Patient was started on clonidine as well as a beta-akbar. Patient's blood pressure readings have improved. She returns here because she states they were still intermittently high in the 170 systolic. Patient states she has a very mild frontal headache without blurry vision, weakness or numbness. She states that she has had the same headache for around 2 months. She states it is much better than it was previously here. Patient also states she has a "poking feeling" to her chest that is nonexertional without shortness of breath. She did vomit x1 this morning. She states intermittent vomiting is normal for her. She denies any and all abdominal pain. She denies any calf pain or leg swelling. She denies any blurry vision. ROS: See HPI All other review of systems reviewed and otherwise negative Reviewed vital signs and nursing note as charted by RN. PHYSICAL EXAM: CONSTITUTIONAL: Alert and oriented and responds appropriately to questions. Well-appearing; well-nourished HEAD: Normocephalic; atraumatic EYES: PERRL; no nystagmus noted ENT: Normal nose; no rhinorrhea; moist mucous membranes; pharynx without lesions noted NECK: Supple without meningismus; non-tender; no cervical lymphadenopathy, no masses CARD: Regular rate and rhythm; no murmurs; symmetric distal pulses RESP: Normal chest excursion without splinting or tachypnea; breath sounds clear and equal bilaterally; tenderness to palpation of the left anterior chest wall with no swelling, erythema, or crepitus; no wheezes, no rhonchi, no rales ABD/GI: Normal bowel sounds; non-distended; soft, non-tender; no palpable organomegaly or masses BACK: The back appears normal and is non-tender to palpation EXT: Normal ROM in all joints; non-tender to palpation; no edema SKIN: No acute lesions noted NEURO: CN 2-12 intact; 5/5 bilateral upper and lower extremity strength with sensation intact to light touch PSYCH: The patient's mood and manner are appropriate. Grooming and personal hygiene are appropriate. TRAVEL OUTSIDE OF THE [place] IN LAST 30 DAYS: No - Related Data Allergies/Adverse Reactions: No Known Allergies Allergy (Verified 03/30/19 07:59) Past Medical History - General Information source: Patient - Social History Smoking Status: Former Smoker Family History: Reviewed & Not Pertinent Patient has suicidal ideation: No Patient has homicidal ideation: No - Past Medical History Cardiac Medical History: Reports: Hx Coronary Artery Disease, Hx Hypercholesterolemia, Hx Hypertension Denies: Hx Heart Attack Pulmonary Medical History: Denies: Hx Asthma, Hx Bronchitis, Hx COPD, Hx Pneumonia Neurological Medical History: Denies: Hx Cerebrovascular Accident, Hx Seizures Endocrine Medical History: Reports: Hx Diabetes Mellitus Type 2 Renal/ Medical History: Denies: Hx Peritoneal Dialysis GI Medical History: Reports: Hx Gastroesophageal Reflux Disease Musculoskeletal Medical History: Reports Hx Arthritis - HANDS/BACK Psychiatric Medical History: Denies: Hx Depression Past Surgical History: Reports: Hx Hysterectomy - Immunizations Hx Diphtheria, Pertussis, Tetanus Vaccination: Yes Hx Pneumococcal Vaccination: 06/04/15 Physical Exam - Vital signs Vitals: Temp Pulse Resp BP Pulse Ox 98.3 F 71 16 157/99 H 96 03/30/19 08:00 03/30/19 08:00 03/30/19 08:00 03/30/19 08:00 03/30/19 08:00 Course - Re-evaluation Re-evalutation: Given the history and physical examination, with a blood pressure reading of 149/85 at this time, with a 1 out of 10 frontal headache that she states is much better than her baseline, with no blurry vision, with recent multiple medication adjustments less than 1 week ago, with tenderness to palpation of the anterior chest wall, baseline bundle branch block, with initial troponin as recorded with pain of the "poking feeling" starting greater than 6 hours ago, I do not believe a repeat troponin or medication adjustments as necessary at this moment. I do not want to change her medications so much that she becomes orthostatic causing a fall or head trauma. She understands that her blood pressure medication should be adjusted slowly given her age and the medications that she recently has been adjusted. Patient has a cardiology appointment tomorrow morning. 03/30/19 10:14 EKG shows a heart of 61, normal sinus rhythm, left bundle branch block. Old EKG from October 20 shows a similar pattern. - Vital Signs Vital signs: Temp Pulse Resp BP Pulse Ox 98.3 F 71 20 167/92 H 98 03/30/19 08:00 03/30/19 08:00 03/30/19 10:31 03/30/19 10:31 03/30/19 10:31 - Laboratory Result Diagrams: 03/30/19 09:12 03/30/19 09:12 Laboratory results interpreted by me: 03/30/19 03/30/19 03/30/19 09:12 09:12 09:12 RDW 14.4 H Chloride 110 H Total Protein 6.1 L Urine Blood SMALL H Discharge - Discharge Clinical Impression: Elevated blood pressure reading, Frontal headache, Atypical chest pain Condition: Good Disposition: HOME, SELF-CARE Additional Instructions: Come back immediately with any worsening headache, pain, fevers, vomiting, leg swelling, or any other acute problems. 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 Referrals: HERMINIO MOORE MD [Primary Care Provider] - Follow up as needed
[2019-03-30 10:23] LABS: ALBUMIN 3.6 g/dL (3.5-5.0); ALKALINE PHOSPHATASE 76 U/L (38-126); ANION GAP 8 (5-19); ASPARTATE AMINO TRANSFERASE 20 U/L (14-36); BILIRUBIN,DIRECT 0.1 mg/dL (0.0-0.4); BILIRUBIN,TOTAL 0.3 mg/dL (0.2-1.3); BLOOD UREA NITROGEN 12 mg/dL (7-20); CALCIUM 8.9 mg/dL (8.4-10.2); CARBON DIOXIDE 23 mmol/L (22-30); CHLORIDE 110 mmol/L (98-107); GLUCOSE 91 mg/dL (75-110); POTASSIUM 4.7 mmol/L (3.6-5.0); TOTAL PROTEIN 6.1 g/dL (6.3-8.2)
[2019-03-30 11:08] VITALS: BP 175/76
--- NOTE | 2019-03-30 14:42 | EKG REPORT ---
SEVERITY:- ABNORMAL ECG - SINUS RHYTHM LEFT BUNDLE BRANCH BLOCK : Confirmed by: Pilar Meier MD 30-Mar-2019 14:41:40
== END 2019-03-30 11:19 | disposition home or self-care (01) ==
LOC: ER 07:52
DX: I10 Essential (primary) hypertension (principal); R51 Headache; R07.89 Other chest pain; R11.10 Vomiting, unspecified; E11.9 Type 2 diabetes mellitus without complications; I25.10 Atherosclerotic heart disease of native coronary artery without angina pectoris; E78.00 Pure hypercholesterolemia, unspecified
CPT/HCPCS: 93005; 36415; 85025; 80053; 81001; 84484; 71046; 93010; A9270; 99284

== ENCOUNTER → 2019-08-26 | Outpatient (CLI) | payer MEDICARE ==
[2019-08-26 15:14] LABS: ABSOLUTE BASOPHILS # (AUTO) 0.1 10^3/uL (0.0-0.2); ABSOLUTE EOSINOPHILS # (AUTO) 0.2 10^3/uL (0.0-0.6); ABSOLUTE LYMPHOCYTES (AUTO) 2.8 10^3/uL (0.5-4.7); ABSOLUTE MONOCYTES (AUTO) 0.4 10^3/uL (0.1-1.4); ABSOLUTE NEUT (AUTO) 4.7 10^3/uL (1.7-8.2); BASOPHILS % (AUTO) 0.8 % (0-2); EOSINOPHILS % (AUTO) 2.1 % (0-6); HEMATOCRIT 39.5 % (36.0-47.0); HEMOGLOBIN 13.6 g/dL (12.0-15.5); LYMPHOCYTES % (AUTO) 34.1 % (13-45); MEAN CORPUSCULAR HEMOGLOBIN 29.2 pg (27.0-33.4); MEAN CORPUSCULAR HGB CONC 34.4 g/dL (32.0-36.0); MEAN CORPUSCULAR VOLUME 85 fl (80-97); MONOCYTES % (AUTO) 5.4 % (3-13); PLATELET COUNT 303 10^3/uL (150-450); RED BLOOD COUNT 4.65 10^6/uL (3.72-5.28); RED CELL DISTRIBUTION WIDTH 14.8 % (11.5-14.0); SEGMENTED NEUTROPHILS % (AUTO) 57.6 % (42-78); TOTAL CELLS COUNTED % (AUTO) 100 %; WHITE BLOOD COUNT 8.2 10^3/uL (4.0-10.5)
[2019-08-26 15:26] LABS: A TYPE INFLUENZA AG NEGATIVE (NEGATIVE); B INFLUENZA AG NEGATIVE (NEGATIVE)
[2019-08-26 15:36] LABS: ALBUMIN 4.3 g/dL (3.5-5.0); ALKALINE PHOSPHATASE 84 U/L (38-126); ANION GAP 10 (5-19); ASPARTATE AMINO TRANSFERASE 26 U/L (14-36); BILIRUBIN,DIRECT 0.3 mg/dL (0.0-0.4); BILIRUBIN,TOTAL 0.4 mg/dL (0.2-1.3); BLOOD UREA NITROGEN 18 mg/dL (7-20); CALCIUM 9.7 mg/dL (8.4-10.2); CARBON DIOXIDE 22 mmol/L (22-30); CHLORIDE 107 mmol/L (98-107); GLUCOSE 102 mg/dL (75-110); POTASSIUM 4.7 mmol/L (3.6-5.0); TOTAL PROTEIN 7.4 g/dL (6.3-8.2)
--- NOTE | 2019-08-26 16:03 | RADIOLOGY REPORT (SQ) ---
EXAM DESCRIPTION: CHEST PA/LATERAL COMPLETED DATE/TIME: 08/26/2019 3:02 pm REASON FOR STUDY: COUGH; SHORTNESS OF BREATH COMPARISON: 03/30/2019 EXAM PARAMETERS: NUMBER OF VIEWS: two views TECHNIQUE: Digital Frontal and Lateral radiographic views of the chest acquired. RADIATION DOSE: NA LIMITATIONS: none FINDINGS: LUNGS AND PLEURA: No opacities, masses or pneumothorax. No pleural effusion. MEDIASTINUM AND HILAR STRUCTURES: No masses or contour abnormalities. HEART AND VASCULAR STRUCTURES: Heart normal size. No evidence for failure. BONES: No acute findings. HARDWARE: None in the chest. OTHER: No other significant finding. IMPRESSION: NO SIGNIFICANT RADIOGRAPHIC FINDING IN THE CHEST. TECHNICAL DOCUMENTATION: JOB ID: [id number] 2010 [employer]- All Rights Reserved Reading location - IP/workstation name: [email or web address]
== END ==
LOC: OD 14:26
PROVIDERS: ATTEND Physician Assistant
DX: R05 Cough (principal); R11.2 Nausea with vomiting, unspecified
CPT/HCPCS: 71046; 80053; 83690; 85025; 87804

== ENCOUNTER → 2019-08-27 | Outpatient (CLI) | payer MEDICARE ==
[2019-08-27 12:02] LABS: A TYPE INFLUENZA AG NEGATIVE (NEGATIVE); B INFLUENZA AG NEGATIVE (NEGATIVE)
== END ==
LOC: RDC 10:22
PROVIDERS: ATTEND Registered Nurse
DX: Z20.828 Contact with and (suspected) exposure to other viral communicable diseases (principal)
CPT/HCPCS: 87070; 87635; 87804; 87880

== ENCOUNTER → 2019-09-08 | Outpatient (CLI) | payer MEDICARE ==
[2019-09-08 12:36] LABS: ABSOLUTE BASOPHILS # (AUTO) 0.1 10^3/uL (0.0-0.2); ABSOLUTE EOSINOPHILS # (AUTO) 0.2 10^3/uL (0.0-0.6); ABSOLUTE LYMPHOCYTES (AUTO) 2.9 10^3/uL (0.5-4.7); ABSOLUTE MONOCYTES (AUTO) 0.6 10^3/uL (0.1-1.4); ABSOLUTE NEUT (AUTO) 4.6 10^3/uL (1.7-8.2); EOSINOPHILS % (AUTO) 2.5 % (0-6); HEMATOCRIT 38.4 % (36.0-47.0); HEMOGLOBIN 13.4 g/dL (12.0-15.5); LYMPHOCYTES % (AUTO) 34.9 % (13-45); MEAN CORPUSCULAR HEMOGLOBIN 29.8 pg (27.0-33.4); MEAN CORPUSCULAR HGB CONC 34.9 g/dL (32.0-36.0); MEAN CORPUSCULAR VOLUME 86 fl (80-97); MONOCYTES % (AUTO) 6.9 % (3-13); PLATELET COUNT 310 10^3/uL (150-450); RED BLOOD COUNT 4.49 10^6/uL (3.72-5.28); RED CELL DISTRIBUTION WIDTH 14.4 % (11.5-14.0); SEGMENTED NEUTROPHILS % (AUTO) 54.7 % (42-78); TOTAL CELLS COUNTED % (AUTO) 100 %; WHITE BLOOD COUNT 8.4 10^3/uL (4.0-10.5)
[2019-09-08 12:45] LABS: ALKALINE PHOSPHATASE 84 U/L (38-126); ANION GAP 8 (5-19); ASPARTATE AMINO TRANSFERASE 23 U/L (14-36); BILIRUBIN,TOTAL 0.4 mg/dL (0.2-1.3); BLOOD UREA NITROGEN 18 mg/dL (7-20); CALCIUM 9.5 mg/dL (8.4-10.2); CARBON DIOXIDE 23 mmol/L (22-30); CHLORIDE 109 mmol/L (98-107); CREATINE KINASE 88 U/L (30-135); GLUCOSE 91 mg/dL (75-110); POTASSIUM 4.3 mmol/L (3.6-5.0); TOTAL PROTEIN 6.8 g/dL (6.3-8.2)
[2019-09-08 12:55] LABS: CREATINE KINASE MB 1.03 ng/mL (<4.55)
[2019-09-08 12:59] LABS: TROPONIN I < 0.012 ng/mL
--- NOTE | 2019-09-08 14:10 | EKG REPORT ---
SEVERITY:- ABNORMAL ECG - SINUS RHYTHM LEFT BUNDLE BRANCH BLOCK : Confirmed by: Pilar Meier MD 08-Sep-2019 14:09:45
== END ==
LOC: OD 11:33
PROVIDERS: ATTEND Physician Assistant
DX: R07.9 Chest pain, unspecified (principal)
CPT/HCPCS: 36415; 80053; 82550; 82553; 84484; 85025; 93005; 93010

== ENCOUNTER → 2019-11-19 | Outpatient (CLI) | payer MEDICARE ==
[2019-11-19 10:23] LABS: ABSOLUTE BASOPHILS # (AUTO) 0.1 10^3/uL (0.0-0.2); ABSOLUTE EOSINOPHILS # (AUTO) 0.2 10^3/uL (0.0-0.6); ABSOLUTE MONOCYTES (AUTO) 0.4 10^3/uL (0.1-1.4); BASOPHILS % (AUTO) 0.8 % (0-2); EOSINOPHILS % (AUTO) 2.4 % (0-6); HEMATOCRIT 41.8 % (36.0-47.0); LYMPHOCYTES % (AUTO) 38.9 % (13-45); MEAN CORPUSCULAR HEMOGLOBIN 29.4 pg (27.0-33.4); MEAN CORPUSCULAR HGB CONC 33.4 g/dL (32.0-36.0); MEAN CORPUSCULAR VOLUME 88 fl (80-97); MONOCYTES % (AUTO) 5.8 % (3-13); PLATELET COUNT 328 10^3/uL (150-450); RED BLOOD COUNT 4.75 10^6/uL (3.72-5.28); RED CELL DISTRIBUTION WIDTH 13.4 % (11.5-14.0); SEGMENTED NEUTROPHILS % (AUTO) 52.1 % (42-78); TOTAL CELLS COUNTED % (AUTO) 100 %; WHITE BLOOD COUNT 7.7 10^3/uL (4.0-10.5)
[2019-11-19 10:51] LABS: ALBUMIN 4.4 g/dL (3.5-5.0); ALKALINE PHOSPHATASE 89 U/L (38-126); ANION GAP 9 (5-19); ASPARTATE AMINO TRANSFERASE 26 U/L (14-36); BILIRUBIN,TOTAL 0.6 mg/dL (0.2-1.3); BLOOD UREA NITROGEN 21 mg/dL (7-20); CALCIUM 9.5 mg/dL (8.4-10.2); CARBON DIOXIDE 26 mmol/L (22-30); CHLORIDE 105 mmol/L (98-107); CHOLESTEROL 186.51 mg/dL (0-200); GLUCOSE 95 mg/dL (75-110); POTASSIUM 4.6 mmol/L (3.6-5.0); TOTAL PROTEIN 6.8 g/dL (6.3-8.2); TRIGLYCERIDES 175 mg/dL (<150)
[2019-11-19 11:02] LABS: DIRECT LDL 105 mg/dL (<100)
--- NOTE | 2019-11-19 12:24 | RADIOLOGY REPORT (SQ) ---
EXAM DESCRIPTION: CHEST PA/LATERAL IMAGES COMPLETED DATE/TIME: 11/19/2019 10:27 am REASON FOR STUDY: SHORTNESS OF BREATH COMPARISON: 08/26/2019 EXAM PARAMETERS: NUMBER OF VIEWS: two views TECHNIQUE: Digital Frontal and Lateral radiographic views of the chest acquired. RADIATION DOSE: NA LIMITATIONS: none FINDINGS: LUNGS AND PLEURA: No opacities, masses or pneumothorax. No pleural effusion. MEDIASTINUM AND HILAR STRUCTURES: No masses or contour abnormalities. HEART AND VASCULAR STRUCTURES: Heart normal size. No evidence for failure. BONES: No acute findings. HARDWARE: None in the chest. OTHER: No other significant finding. IMPRESSION: NO SIGNIFICANT RADIOGRAPHIC FINDING IN THE CHEST. TECHNICAL DOCUMENTATION: JOB ID: [id number] 2010 [employer]- All Rights Reserved Reading location - IP/workstation name: [email or web address]
== END ==
LOC: OD 09:13
PROVIDERS: ATTEND Family Medicine
DX: R06.02 Shortness of breath (principal); E11.9 Type 2 diabetes mellitus without complications; E78.5 Hyperlipidemia, unspecified
CPT/HCPCS: 36415; 71046; 80053; 80061; 83036; 83880; 85025; 85379

== ENCOUNTER → 2019-12-01 | Outpatient (CLI) | payer MEDICARE ==
--- NOTE | 2019-12-01 15:56 | RADIOLOGY REPORT (SQ) ---
EXAM DESCRIPTION: CTA CHEST IMAGES COMPLETED DATE/TIME: 12/01/2019 3:24 pm REASON FOR STUDY: R07.9 CHEST PAIN, UNSPECIFIED R07.9 CHEST PAIN, UNSPECIFIED COMPARISON: None. TECHNIQUE: CT scan of the chest performed using helical scanning technique with dynamic intravenous contrast injection. Images reviewed with lung, soft tissue and bone windows. Reconstructed coronal and sagittal MPR images reviewed. Additional 3 dimensional post-processing performed to develop Maximal Intensity Projection images ([place] P). All images stored on PACS. All CT scanners at this facility use dose modulation, iterative reconstruction, and/or weight based d osing when appropriate to reduce radiation dose to as low as reasonably achievable (ALARA). [facility]: Dose Right [facility]: CareDose [facility]: Dose Right [facility]: Teradose 4D [facility]: Culture Kitchen CONTRAST TYPE AND DOSE: contrast/concentration: Isovue 350.00 mmol/ml; Total Contrast Delivered: 52. 0 ml; Total Saline Delivered: 79.9 ml Contrast bolus optimized for the pulmonary arteries. Not diagnostic for the aorta. RENAL FUNCTION: BUN 21, creatinine 0.93 RADIATION DOSE: CT Rad equipment meets quality standard of care and radiation dose reduction techniq ues were employed. CTDIvol: 5.6 - 14.4 mGy. DLP: 534 mGy-cm. . LIMITATIONS: None. FINDINGS: LUNGS AND PLEURA: Small subpleural nodule in the left base. This has benign characteristi cs. It is best demonstrated on series 4, image 35. No consolidation or effusions. No suspicious no dules. AORTA AND GREAT VESSELS: No aneurysm. Contrast bolus not optimized for the aorta. HEART: No pericardial effusion. No significant coronary artery calcifications. PULMONARY ARTERIES: No emboli visualized in the main pulmonary arteries or the segmental branches. HILAR AND MEDIASTINAL STRUCTURES: No identified masses or abnormal nodes. HARDWARE: None in the chest. UPPER ABDOMEN: Small left renal cyst. THYROID AND OTHER SOFT TISSUES: 1.4 cm nodule in the right lobe of the thyroid gland. This is nonspe cific. Unless the patient is a high risk for thyroid neoplasm no further workup is indicated. BONES: No acute or significant finding. 3D MIPS: Confirm above findings. OTHER: No other significant finding. IMPRESSION: No pulmonary emboli. No suspicious findings in the chest. TECHNICAL DOCUMENTATION: JOB ID: [id number] [employer]- All Rights Reserved Reading location - IP/workstation name: [email or web address]
== END ==
LOC: RAD 14:58
PROVIDERS: ATTEND Specialist
DX: R07.9 Chest pain, unspecified (principal); R91.1 Solitary pulmonary nodule; E04.1 Nontoxic single thyroid nodule; N28.1 Cyst of kidney, acquired
CPT/HCPCS: 71275